=== PATIENT | female | born 1940 | race Caucasian/White ===

== ENCOUNTER 2022-01-22 10:50 | Inpatient (IN) | payer BC ==
[~2022-01-22] VITALS: Ht 162.6 cm; Wt 61.7 kg
[2022-01-22 11:03] VITALS: BP_SYST 122
[2022-01-22] MEDS ORDERED: KETOROLAC TROMETHAMINE 30 MG VIAL IVP ONE (11:30)
[2022-01-22] MEDS ORDERED: NACL 0.9% 1,000 ML IV ONE (11:30)
[2022-01-22 12:11] LABS: BILIRUBIN,URINE NEGATIVE (NEGATIVE); CLARITY/URINE SL CLOUDY (CLEAR); COLOR,URINE YELLOW (YELLOW); GLUCOSE,URINE NEGATIVE (NEGATIVE); KETONES,URINE TRACE (NEGATIVE); LEUKOCYTE ESTERASE ,URINE NEGATIVE (NEGATIVE); NITRITE, URINE POSITIVE (NEGATIVE); PROTEIN URINE 2+ (NEGATIVE); UROBILINOGEN,URINE 0.2 (0.2-1.0)
[2022-01-22 12:16] LABS: BASOPHILS # (AUTO) 0.1 K/uL (0.0-0.2); BASOPHILS % (AUTO) 0.6 % (0.0-2.0); EOSINOPHILS % (AUTO) 0.1 % (0.0-4.0); HEMATOCRIT 38.6 % (36-48); LYMPHOCYTES # (AUTO) 1.6 K/uL (1.0-5.5); LYMPHOCYTES % (AUTO) 15.6 % (20.5-51.5); MEAN CORPUSCULAR HEMOGLOBIN 34 pg (27-31); MEAN CORPUSCULAR HGB CONC 34 % (32-36); MEAN CORPUSCULAR VOLUME 100 fL (79.0-98.0); MONOCYTES # (AUTO) 0.5 K/uL (0.0-1.0); MONOCYTES % (AUTO) 4.4 % (1.7-9.3); NEUTROPHILS # (AUTO) 8.2 K/uL (1.8-7.7); NEUTROPHILS % (AUTO) 79.3 % (40.0-70.0); PLATELET COUNT (AUTO) 333 K/uL (130-430); RED BLOOD CELL COUNT(AUTO) 3.85 MIL/uL (4.2-6.2); RED CELL DISTRIBUTION WIDTH 13.5 % (9.0-15.0); WHITE BLOOD COUNT (AUTO) 10.4 K/uL (4.8-10.8)
[2022-01-22 12:19] LABS: BLOOD, URINE TRACE (NEGATIVE)
[2022-01-22 12:23] LABS: ANION GAP 11 (5-15); CALCIUM 8.1 mg/dL (8.4-11.0); CHLORIDE 105 mmol/L (98-107); CREATININE 1.19 mg/dL (0.55-1.30); GLUCOSE 132 mg/dL (70-99); POTASSIUM 4.7 mmol/L (3.5-5.1); SODIUM SERUM 133 mmol/L (136-145); UREA NITROGEN, BLOOD 31 mg/dL (8-21)
[2022-01-22] MEDS ORDERED: LIP40 PO (12:27)
[2022-01-22] MEDS ORDERED: UMEC62.5 IH (12:27)
[2022-01-22] MEDS ORDERED: NEU300 PO (12:27)
[2022-01-22] MEDS ORDERED: APIX5TAB PO (12:27)
[2022-01-22] MEDS ORDERED: FURO-150 PO (12:27)
[2022-01-22] MEDS ORDERED: AMIO100T4 PO (12:27)
[2022-01-22] MEDS ORDERED: METO25TA6 PO (12:27)
[2022-01-22 12:28] LABS: BACTERIA,URINE MANY /HPF (None Seen); WBC,URINE 0-3 /HPF (0-3)
[2022-01-22 12:28] LABS: INR 1.1 (0.8-1.2); PROTHROMBIN TIME 11.4 SECS (9.5-12.5)
[2022-01-22 12:32] LABS: ALANINE AMINOTRANSFERASE 29 U/L (12-78); ALBUMIN 3.4 g/dL (3.4-4.8); ASPARTATE AMINOTRANSFERASE 26 U/L (10-37); TOTAL BILIRUBIN 0.5 mg/dL (0.0-1.0)
[2022-01-22 19:20] VITALS: BP_SYST 139
[2022-01-22] MEDS ORDERED: ONDANSETRON HCL 4 MG/2 ML VIAL IVP PRN (19:45)
[2022-01-22 20:35] VITALS: BP_SYST 129
[2022-01-22] MEDS ORDERED: ACETAMINOPHEN 325 MG TABLET PO PRN (22:00)
[2022-01-22] MEDS ORDERED: LORazepam 2 MG/ML VIAL IVP PRN (22:00)
[2022-01-22] MEDS ORDERED: NALOXONE HCL 0.4 MG/ML AMP (NARCAN) IVP PRN ×2 (22:00)
[2022-01-22] MEDS: D5/0.45 NS 1,000 ML IV SCH (23:25)
[2022-01-22] MEDS: ONDANSETRON HCL 4 MG/2 ML VIAL IVP PRN (23:28)
[2022-01-22] MEDS: HYDROcodone/ACETAMIN 5-325 MG TAB (NORCO/ VICODIN) PO PRN (23:28)
[2022-01-23] MEDS: HYDROcodone/ACETAMIN 10-325 MG TAB PO PRN ×4 (03:57→23:33)
[2022-01-23] MEDS: ONDANSETRON HCL 4 MG/2 ML VIAL IVP PRN ×4 (04:00→17:50)
[2022-01-23 06:20] LABS: BASOPHILS # (AUTO) 0.1 K/uL (0.0-0.2); BASOPHILS % (AUTO) 0.4 % (0.0-2.0); EOSINOPHILS % (AUTO) 0.1 % (0.0-4.0); HEMATOCRIT 37.7 % (36-48); HEMOGLOBIN 12.7 g/dL (12.0-16.0); LYMPHOCYTES # (AUTO) 1.5 K/uL (1.0-5.5); LYMPHOCYTES % (AUTO) 12.7 % (20.5-51.5); MEAN CORPUSCULAR HEMOGLOBIN 34 pg (27-31); MEAN CORPUSCULAR HGB CONC 34 % (32-36); MEAN CORPUSCULAR VOLUME 100 fL (79.0-98.0); MONOCYTES # (AUTO) 0.7 K/uL (0.0-1.0); NEUTROPHILS # (AUTO) 9.5 K/uL (1.8-7.7); NEUTROPHILS % (AUTO) 80.8 % (40.0-70.0); PLATELET COUNT (AUTO) 297 K/uL (130-430); RED BLOOD CELL COUNT(AUTO) 3.76 MIL/uL (4.2-6.2); RED CELL DISTRIBUTION WIDTH 13.4 % (9.0-15.0); WHITE BLOOD COUNT (AUTO) 11.7 K/uL (4.8-10.8)
[2022-01-23] MEDS: D5/0.45 NS 1,000 ML IV SCH ×2 (06:45→13:28)
[2022-01-23 07:09] LABS: ALANINE AMINOTRANSFERASE 16 U/L (12-78); ALBUMIN 2.9 g/dL (3.4-4.8); ANION GAP 12 (5-15); ASPARTATE AMINOTRANSFERASE 16 U/L (10-37); CALCIUM 7.1 mg/dL (8.4-11.0); CHLORIDE 107 mmol/L (98-107); CREATININE 1.03 mg/dL (0.55-1.30); GLUCOSE 161 mg/dL (70-99); PHOSPHORUS 2.9 mg/dL (2.7-4.5); POTASSIUM 3.8 mmol/L (3.5-5.1); SODIUM SERUM 136 mmol/L (136-145); TOTAL BILIRUBIN 0.2 mg/dL (0.0-1.0); UREA NITROGEN, BLOOD 29 mg/dL (8-21)
[2022-01-23 08:00] VITALS: BP_SYST 133
[2022-01-23] MEDS: FUROSEMIDE 20 MG TABLET PO SCH (08:45)
[2022-01-23] MEDS: METOPROLOL TARTRATE 25 MG TABLET PO SCH ×2 (08:45→20:50)
[2022-01-23] MEDS: HYDROcodone/ACETAMIN 5-325 MG TAB (NORCO/ VICODIN) PO PRN (08:46)
[2022-01-23] MEDS: AMIODARONE HCL 200 MG TABLET PO SCH (08:46)
[2022-01-23] MEDS: APIXABAN 2.5 MG TABLET PO SCH ×2 (08:48→20:51)
[2022-01-23 08:55] LABS: C-REACTIVE PROTEIN QUANT < 0.2 mg/dL (0-0.5)
[2022-01-23 09:59] LABS: ERYTHROCYTE SEDIMENTATION RATE 9 MM/HR (0-20)
[2022-01-23] MEDS ORDERED: DIATR MEGLU/DIATRIZ SOD 30 ML SOLUTION PO ONE (11:04)
[2022-01-23 12:00] VITALS: BP_SYST 127
[2022-01-23 16:00] VITALS: BP_SYST 126
[2022-01-23] MEDS: cefTRIAXone 1 GM in D5W 50 ML IV SCH (18:21)
[2022-01-23 20:00] VITALS: BP_SYST 138
[2022-01-23] MEDS: DOCUSATE SODIUM 100 MG CAPSULE PO SCH (20:50)
[2022-01-23] MEDS: GABAPENTIN 300 MG CAPSULE PO SCH (20:50)
[2022-01-23] MEDS: ATORVASTATIN 20 MG TABLET PO SCH (20:50)
[2022-01-24 00:10] VITALS: BP_SYST 109
[2022-01-24] MEDS: D5/0.45 NS 1,000 ML IV SCH ×3 (00:15→20:58)
[2022-01-24 08:00] VITALS: BP_SYST 105
[2022-01-24] MEDS: DOCUSATE SODIUM 100 MG CAPSULE PO SCH ×2 (08:42→20:55)
[2022-01-24] MEDS: METOPROLOL TARTRATE 25 MG TABLET PO SCH ×2 (08:43→20:56)
[2022-01-24] MEDS: AMIODARONE HCL 200 MG TABLET PO SCH (08:43)
[2022-01-24] MEDS: ONDANSETRON HCL 4 MG/2 ML VIAL IVP PRN (08:44)
[2022-01-24] MEDS: FUROSEMIDE 20 MG TABLET PO SCH (08:44)
[2022-01-24] MEDS: HYDROcodone/ACETAMIN 10-325 MG TAB PO PRN ×3 (08:45→20:55)
[2022-01-24] MEDS: APIXABAN 2.5 MG TABLET PO SCH ×2 (08:47→20:58)
[2022-01-24 12:49] VITALS: BP_SYST 99
[2022-01-24 16:11] VITALS: BP_SYST 107
[2022-01-24] MEDS: cefTRIAXone 1 GM in D5W 50 ML IV SCH (17:15)
[2022-01-24 20:18] VITALS: BP_SYST 117
[2022-01-24] MEDS: GABAPENTIN 300 MG CAPSULE PO SCH (20:55)
[2022-01-24] MEDS: ATORVASTATIN 20 MG TABLET PO SCH (20:55)
[2022-01-25 02:12] VITALS: BP_SYST 90
[2022-01-25] MEDS: HYDROcodone/ACETAMIN 10-325 MG TAB PO PRN ×3 (05:34→20:48)
[2022-01-25] MEDS: D5/0.45 NS 1,000 ML IV SCH ×3 (06:15→17:23)
[2022-01-25 07:17] LABS: BASOPHILS % (AUTO) 0.1 % (0.0-2.0); EOSINOPHILS % (AUTO) 0.1 % (0.0-4.0); HEMATOCRIT 37.4 % (36-48); HEMOGLOBIN 12.5 g/dL (12.0-16.0); LYMPHOCYTES # (AUTO) 1.3 K/uL (1.0-5.5); LYMPHOCYTES % (AUTO) 10.8 % (20.5-51.5); MEAN CORPUSCULAR HEMOGLOBIN 34 pg (27-31); MEAN CORPUSCULAR HGB CONC 34 % (32-36); MEAN CORPUSCULAR VOLUME 101 fL (79.0-98.0); MONOCYTES # (AUTO) 0.8 K/uL (0.0-1.0); MONOCYTES % (AUTO) 6.8 % (1.7-9.3); NEUTROPHILS # (AUTO) 10.3 K/uL (1.8-7.7); NEUTROPHILS % (AUTO) 82.2 % (40.0-70.0); PLATELET COUNT (AUTO) 243 K/uL (130-430); RED CELL DISTRIBUTION WIDTH 13.6 % (9.0-15.0); WHITE BLOOD COUNT (AUTO) 12.5 K/uL (4.8-10.8)
[2022-01-25 08:00] VITALS: BP_SYST 118
[2022-01-25 08:26] LABS: ANION GAP 8 (5-15); CALCIUM 7.7 mg/dL (8.4-11.0); CHLORIDE 102 mmol/L (98-107); CREATININE 0.79 mg/dL (0.55-1.30); GLUCOSE 115 mg/dL (70-99); POTASSIUM 4.6 mmol/L (3.5-5.1); SODIUM SERUM 133 mmol/L (136-145); UREA NITROGEN, BLOOD 15 mg/dL (8-21)
[2022-01-25] MEDS ORDERED: fentaNYL CITRATE/PF 100 MCG/2 ML AMP ONE (08:52)
[2022-01-25] MEDS ORDERED: MIDAZOLAM HCL 5 MG/5 ML VIAL ONE (08:53)
[2022-01-25] MEDS ORDERED: PANTOPRAZOLE SODIUM 40 MG TAB PO SCH (09:00)
[2022-01-25] MEDS ORDERED: NS 500 ML IV ONE (09:45)
[2022-01-25] MEDS: FUROSEMIDE 20 MG TABLET PO SCH (10:05)
[2022-01-25] MEDS: DOCUSATE SODIUM 100 MG CAPSULE PO SCH ×2 (10:05→20:49)
[2022-01-25] MEDS: AMIODARONE HCL 200 MG TABLET PO SCH (10:06)
[2022-01-25] MEDS: APIXABAN 2.5 MG TABLET PO SCH ×2 (10:09→20:52)
[2022-01-25] MEDS: METOPROLOL TARTRATE 25 MG TABLET PO SCH ×2 (10:10→20:50)
[2022-01-25] MEDS ORDERED: PANTOPRAZOLE SODIUM 40 MG TAB PO ONE (10:15)
[2022-01-25] MEDS: ONDANSETRON HCL 4 MG/2 ML VIAL IVP PRN (11:23)
[2022-01-25 12:00] VITALS: BP_SYST 112
[2022-01-25 17:00] VITALS: BP_SYST 125
[2022-01-25] MEDS: cefTRIAXone 1 GM in D5W 50 ML IV SCH (17:22)
[2022-01-25 20:37] VITALS: BP_SYST 107
[2022-01-25] MEDS: GABAPENTIN 300 MG CAPSULE PO SCH (20:49)
[2022-01-25] MEDS: PANTOPRAZOLE SODIUM 40 MG TAB PO SCH (20:49)
[2022-01-25] MEDS: ATORVASTATIN 20 MG TABLET PO SCH (20:49)
[2022-01-25] MEDS: MELATONIN 5 MG TABLET PO PRN (20:51)
[2022-01-26] VITALS (7 sets, daily range): BP systolic 73–104
[2022-01-26] MEDS: AMIODARONE HCL 200 MG TABLET PO SCH (08:31)
[2022-01-26] MEDS: DOCUSATE SODIUM 100 MG CAPSULE PO SCH ×2 (08:31→21:00)
[2022-01-26] MEDS: APIXABAN 2.5 MG TABLET PO SCH ×2 (08:32→21:43)
[2022-01-26] MEDS: FUROSEMIDE 20 MG TABLET PO SCH (08:33)
[2022-01-26] MEDS: METOPROLOL TARTRATE 25 MG TABLET PO SCH ×2 (08:34→21:38)
[2022-01-26] MEDS: PANTOPRAZOLE SODIUM 40 MG TAB PO SCH ×2 (08:35→21:38)
[2022-01-26] MEDS ORDERED: NS 500 ML IV ONE (08:45)
[2022-01-26 09:29] LABS: BASOPHILS % (AUTO) 0.5 % (0.0-2.0); EOSINOPHILS # (AUTO) 0.1 K/uL (0.0-0.4); EOSINOPHILS % (AUTO) 0.6 % (0.0-4.0); HEMATOCRIT 36.5 % (36-48); HEMOGLOBIN 12.1 g/dL (12.0-16.0); LYMPHOCYTES # (AUTO) 2.1 K/uL (1.0-5.5); LYMPHOCYTES % (AUTO) 23.1 % (20.5-51.5); MEAN CORPUSCULAR HEMOGLOBIN 34 pg (27-31); MEAN CORPUSCULAR HGB CONC 33 % (32-36); MEAN CORPUSCULAR VOLUME 102 fL (79.0-98.0); MONOCYTES # (AUTO) 0.4 K/uL (0.0-1.0); MONOCYTES % (AUTO) 4.7 % (1.7-9.3); NEUTROPHILS # (AUTO) 6.6 K/uL (1.8-7.7); NEUTROPHILS % (AUTO) 71.1 % (40.0-70.0); PLATELET COUNT (AUTO) 235 K/uL (130-430); RED BLOOD CELL COUNT(AUTO) 3.59 MIL/uL (4.2-6.2); RED CELL DISTRIBUTION WIDTH 13.3 % (9.0-15.0); WHITE BLOOD COUNT (AUTO) 9.3 K/uL (4.8-10.8)
[2022-01-26 09:41] LABS: ANION GAP 6 (5-15); CALCIUM 7.6 mg/dL (8.4-11.0); CHLORIDE 104 mmol/L (98-107); CREATININE 0.92 mg/dL (0.55-1.30); GLUCOSE 128 mg/dL (70-99); POTASSIUM 3.5 mmol/L (3.5-5.1); SODIUM SERUM 134 mmol/L (136-145); UREA NITROGEN, BLOOD 8 mg/dL (8-21)
[2022-01-26 09:48] LABS: ALANINE AMINOTRANSFERASE 7 U/L (12-78); ALBUMIN 2.1 g/dL (3.4-4.8); ASPARTATE AMINOTRANSFERASE 11 U/L (10-37); TOTAL BILIRUBIN 0.1 mg/dL (0.0-1.0)
[2022-01-26] MEDS ORDERED: NACL 0.9% 250 ML IV SCH (11:25)
[2022-01-26] MEDS ORDERED: NS 250 ML IV ONE ×2 (11:30→11:45)
[2022-01-26] MEDS: IPRATROPIUM BROM 0.5 MG/2.5 ML VIAL.NEB (ATROVENT) INH SCH ×2 (13:34→20:01)
[2022-01-26] MEDS: HYDROcodone/ACETAMIN 5-325 MG TAB (NORCO/ VICODIN) PO PRN ×2 (13:50→21:39)
[2022-01-26] MEDS: D5/0.45 NS 1,000 ML IV SCH (14:00)
[2022-01-26] MEDS: cefTRIAXone 1 GM in D5W 50 ML IV SCH (16:47)
[2022-01-26] MEDS: ATORVASTATIN 20 MG TABLET PO SCH (21:38)
[2022-01-26] MEDS: GABAPENTIN 300 MG CAPSULE PO SCH (21:38)
[2022-01-27] VITALS (7 sets, daily range): BP systolic 98–124
[2022-01-27] MEDS: IPRATROPIUM BROM 0.5 MG/2.5 ML VIAL.NEB (ATROVENT) INH SCH ×4 (01:00→19:31)
[2022-01-27] MEDS: HYDROcodone/ACETAMIN 10-325 MG TAB PO PRN ×2 (01:09→20:51)
[2022-01-27] MEDS: D5/0.45 NS 1,000 ML IV SCH ×3 (01:09→22:00)
[2022-01-27] MEDS: PANTOPRAZOLE SODIUM 40 MG TAB PO SCH ×2 (08:19→20:50)
[2022-01-27] MEDS: FUROSEMIDE 20 MG TABLET PO SCH (08:19)
[2022-01-27] MEDS: AMIODARONE HCL 200 MG TABLET PO SCH (08:19)
[2022-01-27] MEDS: METOPROLOL TARTRATE 25 MG TABLET PO SCH ×2 (08:20→20:51)
[2022-01-27] MEDS: APIXABAN 2.5 MG TABLET PO SCH ×2 (08:22→20:53)
[2022-01-27 08:38] LABS: BASOPHILS % (AUTO) 0.7 % (0.0-2.0); EOSINOPHILS # (AUTO) 0.1 K/uL (0.0-0.4); HEMATOCRIT 28.2 % (36-48); HEMOGLOBIN 9.6 g/dL (12.0-16.0); LYMPHOCYTES # (AUTO) 1.9 K/uL (1.0-5.5); LYMPHOCYTES % (AUTO) 32.4 % (20.5-51.5); MEAN CORPUSCULAR HEMOGLOBIN 34 pg (27-31); MEAN CORPUSCULAR HGB CONC 34 % (32-36); MEAN CORPUSCULAR VOLUME 101 fL (79.0-98.0); MONOCYTES # (AUTO) 0.4 K/uL (0.0-1.0); MONOCYTES % (AUTO) 7.6 % (1.7-9.3); NEUTROPHILS # (AUTO) 3.3 K/uL (1.8-7.7); NEUTROPHILS % (AUTO) 57.3 % (40.0-70.0); PLATELET COUNT (AUTO) 252 K/uL (130-430); RED CELL DISTRIBUTION WIDTH 13.4 % (9.0-15.0); WHITE BLOOD COUNT (AUTO) 5.8 K/uL (4.8-10.8)
[2022-01-27 08:44] LABS: ANION GAP 6 (5-15); CALCIUM 7.5 mg/dL (8.4-11.0); CHLORIDE 109 mmol/L (98-107); CREATININE 0.71 mg/dL (0.55-1.30); GLUCOSE 103 mg/dL (70-99); POTASSIUM 3.4 mmol/L (3.5-5.1); SODIUM SERUM 141 mmol/L (136-145); UREA NITROGEN, BLOOD 7 mg/dL (8-21)
[2022-01-27] MEDS: DOCUSATE SODIUM 100 MG CAPSULE PO SCH ×2 (09:00→20:53)
[2022-01-27] MEDS: HYDROcodone/ACETAMIN 5-325 MG TAB (NORCO/ VICODIN) PO PRN (15:52)
[2022-01-27] MEDS: cefTRIAXone 1 GM in D5W 50 ML IV SCH (16:48)
[2022-01-27 17:59] LABS: HEMOGLOBIN 9.9 g/dL (12.0-16.0); MEAN CORPUSCULAR HEMOGLOBIN 35 pg (27-31)
[2022-01-27 18:16] LABS: BASOPHILS % (AUTO) 0.9 % (0.0-2.0); EOSINOPHILS # (AUTO) 0.1 K/uL (0.0-0.4); EOSINOPHILS % (AUTO) 1.4 % (0.0-4.0); LYMPHOCYTES # (AUTO) 1.3 K/uL (1.0-5.5); LYMPHOCYTES % (AUTO) 23.1 % (20.5-51.5); MEAN CORPUSCULAR HGB CONC 34 % (32-36); MEAN CORPUSCULAR VOLUME 102 fL (79.0-98.0); MONOCYTES # (AUTO) 0.4 K/uL (0.0-1.0); MONOCYTES % (AUTO) 6.9 % (1.7-9.3); NEUTROPHILS # (AUTO) 3.9 K/uL (1.8-7.7); NEUTROPHILS % (AUTO) 67.7 % (40.0-70.0); PLATELET COUNT (AUTO) 278 K/uL (130-430); RED BLOOD CELL COUNT(AUTO) 2.85 MIL/uL (4.2-6.2); RED CELL DISTRIBUTION WIDTH 13.1 % (9.0-15.0); WHITE BLOOD COUNT (AUTO) 5.7 K/uL (4.8-10.8)
[2022-01-27] MEDS: GABAPENTIN 300 MG CAPSULE PO SCH (20:50)
[2022-01-27] MEDS: ATORVASTATIN 20 MG TABLET PO SCH (20:50)
[2022-01-28] VITALS (8 sets, daily range): BP systolic 108–139
[2022-01-28] MEDS: MELATONIN 5 MG TABLET PO PRN (00:13)
[2022-01-28] MEDS ORDERED: MELATONIN 5 MG TABLET PO ONE (00:13)
[2022-01-28] MEDS: IPRATROPIUM BROM 0.5 MG/2.5 ML VIAL.NEB (ATROVENT) INH SCH ×3 (01:00→13:00)
[2022-01-28 05:40] LABS: BASOPHILS % (AUTO) 0.9 % (0.0-2.0); EOSINOPHILS # (AUTO) 0.1 K/uL (0.0-0.4); EOSINOPHILS % (AUTO) 2.4 % (0.0-4.0); HEMATOCRIT 27.2 % (36-48); HEMOGLOBIN 9.3 g/dL (12.0-16.0); LYMPHOCYTES # (AUTO) 1.7 K/uL (1.0-5.5); LYMPHOCYTES % (AUTO) 33.5 % (20.5-51.5); MEAN CORPUSCULAR HEMOGLOBIN 34 pg (27-31); MEAN CORPUSCULAR HGB CONC 34 % (32-36); MEAN CORPUSCULAR VOLUME 100 fL (79.0-98.0); MONOCYTES # (AUTO) 0.4 K/uL (0.0-1.0); MONOCYTES % (AUTO) 7.8 % (1.7-9.3); NEUTROPHILS # (AUTO) 2.8 K/uL (1.8-7.7); NEUTROPHILS % (AUTO) 55.4 % (40.0-70.0); PLATELET COUNT (AUTO) 269 K/uL (130-430); RED BLOOD CELL COUNT(AUTO) 2.71 MIL/uL (4.2-6.2); RED CELL DISTRIBUTION WIDTH 13.4 % (9.0-15.0)
[2022-01-28] MEDS: DOCUSATE SODIUM 100 MG CAPSULE PO SCH (07:43)
[2022-01-28] MEDS: PANTOPRAZOLE SODIUM 40 MG TAB PO SCH (07:46)
[2022-01-28] MEDS: METOPROLOL TARTRATE 25 MG TABLET PO SCH (07:50)
[2022-01-28] MEDS: AMIODARONE HCL 200 MG TABLET PO SCH (07:50)
[2022-01-28] MEDS: APIXABAN 2.5 MG TABLET PO SCH (07:52)
[2022-01-28] MEDS: D5/0.45 NS 1,000 ML IV SCH (07:53)
[2022-01-28 08:14] LABS: ALBUMIN 1.9 g/dL (3.4-4.8); ANION GAP 6 (5-15); CALCIUM 7.5 mg/dL (8.4-11.0); CHLORIDE 108 mmol/L (98-107); CREATININE 0.73 mg/dL (0.55-1.30); GLUCOSE 105 mg/dL (70-99); POTASSIUM 3.3 mmol/L (3.5-5.1); SODIUM SERUM 140 mmol/L (136-145); UREA NITROGEN, BLOOD 7 mg/dL (8-21)
[2022-01-28 10:00] LABS: ALANINE AMINOTRANSFERASE 17 U/L (12-78); ASPARTATE AMINOTRANSFERASE 18 U/L (10-37); TOTAL BILIRUBIN < 0.1 mg/dL (0.0-1.0)
[2022-01-28] MEDS ORDERED: PRO40 PO (10:03)
== END 2022-01-28 15:00 | disposition home or self-care (01) | DRG 378 ==
LOC: SED 10:50 → SMU 18:12 → STU 01-25 09:46
PROVIDERS: ADMIT Internal Medicine Hospice and Palliative Medicine; ATTEND Internal Medicine Hospice and Palliative Medicine
PROC: 0DB98ZX Excision of Duodenum, Via Natural or Artificial Opening Endoscopic, Diagnostic (ICD-10-PCS; 2022-01-25)
PROC: 0DB78ZX Excision of Stomach, Pylorus, Via Natural or Artificial Opening Endoscopic, Diagnostic (ICD-10-PCS; principal; 2022-01-25 08:30)
DX: K26.4 Chronic or unspecified duodenal ulcer with hemorrhage (principal); N39.0 Urinary tract infection, site not specified; C34.90 Malignant neoplasm of unspecified part of unspecified bronchus or lung; E86.0 Dehydration; K52.9 Noninfective gastroenteritis and colitis, unspecified; E78.5 Hyperlipidemia, unspecified; I48.0 Paroxysmal atrial fibrillation; J44.9 Chronic obstructive pulmonary disease, unspecified; K20.90 Esophagitis, unspecified without bleeding; K25.9 Gastric ulcer, unspecified as acute or chronic, without hemorrhage or perforation; E83.42 Hypomagnesemia; N18.2 Chronic kidney disease, stage 2 (mild); K29.70 Gastritis, unspecified, without bleeding; Z20.822 Contact with and (suspected) exposure to COVID-19; K74.60 Unspecified cirrhosis of liver; Z79.01 Long term (current) use of anticoagulants; Z85.118 Personal history of other malignant neoplasm of bronchus and lung; Z87.891 Personal history of nicotine dependence; Z90.2 Acquired absence of lung [part of]; Z90.710 Acquired absence of both cervix and uterus; Z88.0 Allergy status to penicillin; Z79.899 Other long term (current) drug therapy
CPT/HCPCS: 36415; 43239; 71045; 76376; 80048; 80053; 81000; 83605; 83690; 83735; 84100; 84484; 85025; 85610-TC; 85651-TC; 85730-TC; 86140; 87040; 87081; 87086; 88305; 88312; 88313; 93005; 93306; 94640; 94760; 96361; 96374; 99285; G0378; J0696; J1885; J2250; J2405; J3010; J7060; Q9964

== ENCOUNTER 2022-05-31 12:08 | Observation (INO) | payer BC ==
[~2022-05-31] VITALS: Ht 162.6 cm; Wt 63.5 kg
[~2022-05-31 12:08] MED LIST: AMIO100T4 PO; APIX5TAB PO; FURO-150 PO; LIP40 PO; METO25TA6 PO; NEU300 PO; PRO40 PO; UMEC62.5 IH
[2022-05-31 12:30] VITALS: BP_SYST 134
--- NOTE | 2022-05-31 12:30 | NUR ---
Patient triaged and placed in waiting room. VSS and patient appears in no acute distress at this time. Accompanied by SON, awaiting available bed, and MD notified of need for MSE.
--- NOTE | 2022-05-31 12:35 | NUR ---
PT CAME IN FROM HOME, BIB SON, PER MD INSTRUCTION, 5 DAYS OF MORE DIARRHEA THAN NORMAL, DARK/BLACK STOOLS ON FRIDAY AND FRIDAY, UPPER ABD AND BACK PAIN. PT ALSO REPORTS FEELING WEAKER THAN NORMAL.HX ULCERS. PT USES WALKER TO AMBULATE, AAOX4, VSS
--- NOTE | 2022-05-31 12:56 | NUR ---
ER Dr. BARKSDALE at bedside examining patient.
--- NOTE | 2022-05-31 13:39 | NUR ---
Placed in room 8 . Placed on hospital monitor, blood pressure machine and pulse oximeter. To gown for exam. Side rails up.
--- NOTE | 2022-05-31 14:05 | NUR ---
Patient transported to radiology via GURNEY, accompanied by STAFF.
[2022-05-31 15:09] LABS: BASOPHILS % (AUTO) 0.4 % (0.0-2.0); EOSINOPHILS # (AUTO) 0.1 K/uL (0.0-0.4); EOSINOPHILS % (AUTO) 0.9 % (0.0-4.0); HEMATOCRIT 38.9 % (36-48); HEMOGLOBIN 13.3 g/dL (12.0-16.0); LYMPHOCYTES # (AUTO) 2.3 K/uL (1.0-5.5); LYMPHOCYTES % (AUTO) 39.6 % (20.5-51.5); MEAN CORPUSCULAR HEMOGLOBIN 35 pg (27-31); MEAN CORPUSCULAR HGB CONC 34 % (32-36); MEAN CORPUSCULAR VOLUME 103 fL (79.0-98.0); MONOCYTES # (AUTO) 0.4 K/uL (0.0-1.0); MONOCYTES % (AUTO) 6.5 % (1.7-9.3); NEUTROPHILS % (AUTO) 52.6 % (40.0-70.0); PLATELET COUNT (AUTO) 204 K/uL (130-430); RED BLOOD CELL COUNT(AUTO) 3.77 MIL/uL (4.2-6.2); RED CELL DISTRIBUTION WIDTH 13.9 % (9.0-15.0); WHITE BLOOD COUNT (AUTO) 5.8 K/uL (4.8-10.8)
[2022-05-31 15:14] LABS: ANION GAP 6 (5-15); CALCIUM 8.9 mg/dL (8.4-11.0); CHLORIDE 104 mmol/L (98-107); GLUCOSE 89 mg/dL (70-99); POTASSIUM 4.1 mmol/L (3.5-5.1); UREA NITROGEN, BLOOD 19 mg/dL (8-21)
[2022-05-31 15:16] LABS: PROTHROMBIN TIME 10.4 SECS (9.5-12.5)
[2022-05-31 15:18] LABS: ALANINE AMINOTRANSFERASE 23 U/L (12-78); ALBUMIN 3.9 g/dL (3.4-4.8); AMYLASE 26 U/L (0-100); ASPARTATE AMINOTRANSFERASE 23 U/L (10-37); LIPASE 64 U/L (73-393); TOTAL BILIRUBIN 0.7 mg/dL (0.0-1.0)
--- NOTE | 2022-05-31 21:19 | NUR ---
Admit bed requested Patient will be admitted to care of . Admitted to MS unit. Diagnosis GI BLEED Inpatient (Yes or No) NO Observation (Yes or No) YES Orientation concerns or request close to nursing station (Yes or No) NO Covid Status PENDING On vent or bipap NO Isolation requirements NO Needs a sitter NO From Home (Yes or if No enter name of facility) YES Requires Dialysis (Yes or No) NO Med Rec Completed (Yes of No) PENDING
--- NOTE | 2022-06-01 00:50 | NUR ---
Patient will be admitted to care of MD Fatima. Admitted to MS unit. Will go to room 103A. Complete and up to date summary report printed. SBAR report given at bedside to HECTOR Selby with opportunity for questions.
[2022-06-01 01:10] VITALS: BP_SYST 129
--- NOTE | 2022-06-01 02:13 | NUR ---
THIS IS MEDICAL-SURGICAL OBSERVATION NOTE FOR AN 82 YEAR OLD FEMALE RULE OUT GI BLEED. PATIENT NOTES MILD ABDOMEN PAIN ON ARRIVAL TO [facility].
--- NOTE | 2022-06-01 05:53 | NUR ---
CONSULTATION PAGED/CALLED Reason for Consultation: GI BLEED Person Who was Notified: FRAN Consulting Physician: YORDAN Veterinary Medicine Teacher Specialty: Ordering Physician: TASHI
[2022-06-01 05:58] LABS: BASOPHILS # (AUTO) 0.1 K/uL (0.0-0.2); EOSINOPHILS # (AUTO) 0.1 K/uL (0.0-0.4); HEMATOCRIT 38.2 % (36-48); HEMOGLOBIN 13.1 g/dL (12.0-16.0); LYMPHOCYTES # (AUTO) 2.2 K/uL (1.0-5.5); LYMPHOCYTES % (AUTO) 34.4 % (20.5-51.5); MEAN CORPUSCULAR HEMOGLOBIN 35 pg (27-31); MEAN CORPUSCULAR HGB CONC 34 % (32-36); MEAN CORPUSCULAR VOLUME 103 fL (79.0-98.0); MONOCYTES # (AUTO) 0.5 K/uL (0.0-1.0); MONOCYTES % (AUTO) 7.4 % (1.7-9.3); NEUTROPHILS # (AUTO) 3.5 K/uL (1.8-7.7); NEUTROPHILS % (AUTO) 56.2 % (40.0-70.0); PLATELET COUNT (AUTO) 194 K/uL (130-430); RED BLOOD CELL COUNT(AUTO) 3.71 MIL/uL (4.2-6.2); RED CELL DISTRIBUTION WIDTH 13.8 % (9.0-15.0); WHITE BLOOD COUNT (AUTO) 6.2 K/uL (4.8-10.8)
[2022-06-01 06:09] LABS: ANION GAP 7 (5-15); CALCIUM 8.9 mg/dL (8.4-11.0); CHLORIDE 103 mmol/L (98-107); CREATININE 1.08 mg/dL (0.55-1.30); GLUCOSE 67 mg/dL (70-99); POTASSIUM 3.6 mmol/L (3.5-5.1); UREA NITROGEN, BLOOD 21 mg/dL (8-21)
[2022-06-01 06:16] LABS: ALANINE AMINOTRANSFERASE 16 U/L (12-78); ALBUMIN 3.3 g/dL (3.4-4.8); ASPARTATE AMINOTRANSFERASE 22 U/L (10-37); TOTAL BILIRUBIN 0.8 mg/dL (0.0-1.0)
[2022-06-01] MEDS ORDERED: NALOXONE HCL 0.4 MG/ML AMP (NARCAN) IVP PRN (08:15)
[2022-06-01] MEDS ORDERED: ACETAMINOPHEN 325 MG TABLET PO PRN (08:15)
[2022-06-01] MEDS ORDERED: PANTOPRAZOLE SODIUM 40 MG/VIAL (PROTONIX) IVP ONE (08:15)
[2022-06-01] MEDS ORDERED: HYDROcodone/ACETAMIN 5-325 MG TAB (NORCO/ VICODIN) PO PRN (08:15)
[2022-06-01] MEDS ORDERED: AMIODARONE HCL 200 MG TABLET PO ONE (08:15)
[2022-06-01] MEDS ORDERED: ATORVASTATIN 20 MG TABLET PO ONE (09:00)
[2022-06-01] MEDS: D5/0.45 NS 1,000 ML IV SCH ×2 (09:21→21:21)
[2022-06-01 11:24] VITALS: BP_SYST 136
[2022-06-01 15:24] VITALS: BP_SYST 134
[2022-06-01] MEDS ORDERED: BUDESONIDE/FORMOTEROL 160-4.5 mCg, 6 GM INHALER INH PRN (16:30)
[2022-06-01 16:48] VITALS: BP_SYST 134
[2022-06-01] MEDS: ALBUTEROL SULFATE 0.083% 2.5 MG/3 ML VIAL.NEB INH SCH (19:45)
[2022-06-01] MEDS: BUDESONIDE 0.5 MG/2 ML AMPUL.NEB INH SCH (19:52)
[2022-06-01 20:49] LABS: BASOPHILS # (AUTO) 0.1 K/uL (0.0-0.2); EOSINOPHILS % (AUTO) 0.3 % (0.0-4.0); HEMATOCRIT 42.7 % (36-48); HEMOGLOBIN 14.2 g/dL (12.0-16.0); LYMPHOCYTES % (AUTO) 34.5 % (20.5-51.5); MEAN CORPUSCULAR HEMOGLOBIN 35 pg (27-31); MEAN CORPUSCULAR HGB CONC 33 % (32-36); MEAN CORPUSCULAR VOLUME 105 fL (79.0-98.0); MONOCYTES # (AUTO) 0.4 K/uL (0.0-1.0); MONOCYTES % (AUTO) 6.1 % (1.7-9.3); NEUTROPHILS # (AUTO) 3.4 K/uL (1.8-7.7); NEUTROPHILS % (AUTO) 58.1 % (40.0-70.0); PLATELET COUNT (AUTO) 178 K/uL (130-430); RED BLOOD CELL COUNT(AUTO) 4.06 MIL/uL (4.2-6.2); RED CELL DISTRIBUTION WIDTH 13.9 % (9.0-15.0); WHITE BLOOD COUNT (AUTO) 5.9 K/uL (4.8-10.8)
[2022-06-01] MEDS ORDERED: PANTOPRAZOLE SODIUM 40 MG/VIAL (PROTONIX) IVP SCH (21:00)
--- NOTE | 2022-06-01 23:15 | NUR ---
PT COMPLAINT : BANKING MANAGEMENT CONSULTING MANAGER CAME AND TOLD ME THAT PT WANTS TO TALK TO ME , I WENT TO THE ROOM , PT TOLD ME THAT SHE DIDNT RECEIVED HER MEDICATION TONIGHT , WHEN I CHECKED THE EMAR NOTICED THAT MEDICATION ARE SCANNED AND GIVEN , I WENT TO THE RN AND TALKED WITH RN , PER RN PT REFUSED TO START NEW IV SO SHE DIDNT RECEIVED HER PROTONIX OR IV FLUID , WENT AND TALKED WITH THE PT , PT STATED SHE DOESNT WANT THE MEDICATION IN IV FORM , SHE STATED" SHE HAS SMALL VEINS AND ITS TOO PAINFUL AND I DONT WANT TO BE POKED AGAIN " I EDUCATED THE PT THAT PTS MEDICATION ORDER IS PROTONIX AND ITS THROUGH IV , PT REQUESTED ME TO CHANGE HER PROTONIX TO PO FORM . PRIMARY RN AT BEDSIDE , I REQUESTED RN TO CALL MD TO SEE CINDY PAYNE IS OK TO CHANGE THE ORDER . RN WANTS ME TO CALL , SO I CALLED DR CORONA , WHO IS COVERING FOR DR AKINS TO NIGHT , AND NOTIFIED THE SITUATION , ORDERED TO CHANGE PROTONIX 40 MG IV BID TO PROTONIX 40 MG PO BID, ORDER ENTERED AND NOTIFIED PRIMARY RN AND THE PT .
--- NOTE | 2022-06-01 23:29 | NUR ---
PATIENT WAS DUE TO HAVE PROTONIX IVP AT 2100, PATIENT HAD NO IV ACCESS,AND REFUSED RE - STARTING A PIV .PATIENT STATED THAT SHE IS GOING HOME TOMORROW . PATIENT ASKED NURSE TO GIVE THE PROTONIX IM. RN EXPLAINED THAT ORDERED ROUTE OF ADMINISTRATION IS THROUGH IVP AND IT COULD CAUSE INFECTION / ABCESS IF GIVEN IM
[2022-06-01] MEDS: PANTOPRAZOLE SODIUM 40 MG TAB PO SCH ×2 (23:30→23:57)
[2022-06-02] VITALS: BP_SYST 142
[2022-06-02 00:46] VITALS: BP_SYST 142
[2022-06-02] MEDS: ALBUTEROL SULFATE 0.083% 2.5 MG/3 ML VIAL.NEB INH SCH ×3 (01:00→13:35)
[2022-06-02] MEDS: BUDESONIDE 0.5 MG/2 ML AMPUL.NEB INH SCH (07:20)
[2022-06-02 07:48] LABS: ANION GAP 8 (5-15); CALCIUM 8.4 mg/dL (8.4-11.0); CHLORIDE 102 mmol/L (98-107); CREATININE 0.92 mg/dL (0.55-1.30); GLUCOSE 87 mg/dL (70-99); POTASSIUM 3.3 mmol/L (3.5-5.1); UREA NITROGEN, BLOOD 19 mg/dL (8-21)
[2022-06-02 08:00] VITALS: BP_SYST 115
--- NOTE | 2022-06-02 08:00 | NUR ---
Miss Samuels has been assessed as indicated. She has been noted to be both pleasant and cooperative. She hopes to be DC to home. today She has no IV access and has declined it's replacement. She had had small loose stools no blood noted, not dark or tarry nor are they coffee ground in appearance. She ambulates to the rest room without assistance using a walker that is at the bedside. She is resting quietly with no s/s of distress or discomfort
[2022-06-02] MEDS: D5/0.45 NS 1,000 ML IV SCH (08:01)
[2022-06-02] MEDS ORDERED: ATORVASTATIN 20 MG TABLET PO SCH (09:00)
[2022-06-02] MEDS ORDERED: PRO40 PO (09:41)
[2022-06-02] MEDS ORDERED: POTASSIUM CHLORIDE 20 MEQ/PKT PACKET PO ONE (10:00)
--- NOTE | 2022-06-02 10:00 | NUR ---
Miss Samuels was seen by the covering physician Dr. Rhodes. He states that if she tolerates a regular diet at lunch she can be DC. She is made aware of this and the diet order is changed
[2022-06-02] MEDS: PANTOPRAZOLE SODIUM 40 MG TAB PO SCH (10:33)
[2022-06-02 11:26] VITALS: BP_SYST 100
--- NOTE | 2022-06-02 13:00 | NUR ---
Miss Samuels tolerated the regular diet well. No N/V or loose stools. She denies any pain or discomfort
[2022-06-02 15:28] VITALS: BP_SYST 100
[2022-06-02 15:33] VITALS: BP_SYST 117
--- NOTE | 2022-06-02 15:43 | NUR ---
[facility]/HCP CM MS SAVITA HERNANDEZ WAS CALLED, RE: TO [facility] FOR MED SAFETY AND HOME PT. LEFT A VOICE MESSAGE ON HER CP.
--- NOTE | 2022-06-06 17:01 | NUR ---
IV ADMINISTRATION END TIME (Observation Patients ONLY): late entry IV infusion of D5NS at 80 ml/hr started at 09:21 on 06/01/22 and ended at 21:20 06/01/22 IV infusion of D5NS at 80 ml/hr started at 21:21 on 06/01/22 and ended at 13:00 06/02/22
== END 2022-06-02 16:00 | disposition home health service (06) ==
LOC: SED 12:08 → SMU 21:10
PROVIDERS: ADMIT Internal Medicine; ATTEND Internal Medicine
DX: K25.9 Gastric ulcer, unspecified as acute or chronic, without hemorrhage or perforation (principal); Z20.822 Contact with and (suspected) exposure to COVID-19; K92.1 Melena; I48.91 Unspecified atrial fibrillation; J44.9 Chronic obstructive pulmonary disease, unspecified; E78.5 Hyperlipidemia, unspecified; I10 Essential (primary) hypertension; K29.70 Gastritis, unspecified, without bleeding; Z79.01 Long term (current) use of anticoagulants; Z87.11 Personal history of peptic ulcer disease; Z88.0 Allergy status to penicillin; Z79.899 Other long term (current) drug therapy
CPT/HCPCS: 80053 ×2; 82150; 83690; 85025 ×2; 85610; 85730; 86886; 86900; 86901; 36415 ×3; 93005; 76376; 74176; 99285; 83605; 87426; 96361 ×2; 96374; 94640 ×2; 80048; 94760; G0378 ×3; C9113; J7613 ×2; J7626 ×2

== ENCOUNTER 2022-07-28 12:56 | Emergency (ER) | payer BC ==
[~2022-07-28] VITALS: Ht 162.6 cm; Wt 69.9 kg
[2022-07-28 12:56] VITALS: BP_SYST 120
--- NOTE | 2022-07-28 12:56 | NUR ---
BROUGHT BACK TO BED #8 AND TRIAGED. REPORT GIVEN TO BEST
--- NOTE | 2022-07-28 14:21 | NUR ---
patient with history of a-fib presents to er with chest pain today, no sob.
--- NOTE | 2022-07-28 14:51 | NUR ---
MOVED TO BED 4
[2022-07-28] MEDS ORDERED: ASPIRIN 325 MG TABLET PO ONE (15:45)
[2022-07-28] MEDS ORDERED: MORPHINE 4 MG INJ. 4 MG/ML VIAL IVP ONE ×2 (16:00→23:30)
[2022-07-28] MEDS ORDERED: NITROGLYCERIN 1 INCH (GM) OINT. TP ONE ×2 (16:00→23:30)
[2022-07-28 16:56] LABS: BASOPHILS # (AUTO) 0.1 K/uL (0.0-0.2); BASOPHILS % (AUTO) 0.8 % (0.0-2.0); EOSINOPHILS % (AUTO) 0.8 % (0.0-4.0); HEMATOCRIT 37.9 % (36-48); LYMPHOCYTES # (AUTO) 2.7 K/uL (1.0-5.5); LYMPHOCYTES % (AUTO) 41.6 % (20.5-51.5); MEAN CORPUSCULAR HEMOGLOBIN 36 pg (27-31); MEAN CORPUSCULAR HGB CONC 34 % (32-36); MEAN CORPUSCULAR VOLUME 105 fL (79.0-98.0); MONOCYTES # (AUTO) 0.4 K/uL (0.0-1.0); MONOCYTES % (AUTO) 6.3 % (1.7-9.3); NEUTROPHILS # (AUTO) 3.2 K/uL (1.8-7.7); NEUTROPHILS % (AUTO) 50.5 % (40.0-70.0); PLATELET COUNT (AUTO) 204 K/uL (130-430); RED BLOOD CELL COUNT(AUTO) 3.62 MIL/uL (4.2-6.2); RED CELL DISTRIBUTION WIDTH 13.2 % (9.0-15.0); WHITE BLOOD COUNT (AUTO) 6.4 K/uL (4.8-10.8)
[2022-07-28 17:26] LABS: ANION GAP 7 (5-15); CALCIUM 8.8 mg/dL (8.4-11.0); CHLORIDE 106 mmol/L (98-107); CREATININE 0.99 mg/dL (0.55-1.30); GLUCOSE 94 mg/dL (70-99); UREA NITROGEN, BLOOD 19 mg/dL (8-21)
[2022-07-28 17:34] LABS: ALANINE AMINOTRANSFERASE 15 U/L (12-78); ALBUMIN 3.4 g/dL (3.4-4.8); ASPARTATE AMINOTRANSFERASE 17 U/L (10-37); TOTAL BILIRUBIN 0.3 mg/dL (0.0-1.0)
[2022-07-28 18:20] VITALS: BP_SYST 130
--- NOTE | 2022-07-28 18:24 | NUR ---
patient condition stable d/c home with instructions after care reviewed understood left er with daughter ambulatory with steady gait no chest pain.
--- NOTE | 2022-07-28 18:25 | NUR ---
Patient given written and verbal discharge instructions and verbalizes understanding. ER MD discussed with patient the results and treatment provided. Patient in stable condition. ID arm band removed. IV catheter removed intact and dressing applied, no active bleeding. Patient educated on pain management and to follow up with PMD. Pain Scale . Opportunity for questions provided and answered. Medication side effect fact sheet provided.
== END 2022-07-28 18:20 | disposition home or self-care (01) ==
LOC: SED 12:56
DX: R07.89 Other chest pain (principal); R06.02 Shortness of breath; Z88.0 Allergy status to penicillin; Z79.899 Other long term (current) drug therapy
CPT/HCPCS: 99285; 96374; 71250; 80053; 83880; 85025; 84484; 36415; 93005; 76376; J2270

== ENCOUNTER 2023-01-04 15:57 | Emergency (ER) | payer BC ==
[~2023-01-04] VITALS: Ht 162.6 cm; Wt 72.6 kg
--- NOTE | 2023-01-04 16:39 | NUR ---
PT TAKEN FOR LAB DRAW.
--- NOTE | 2023-01-04 16:39 | NUR ---
Patient triaged and placed in waiting room. VSS and patient appears in no acute distress at this time. Accompanied by DAUGHTER, awaiting available bed, and MD notified of need for MSE.
--- NOTE | 2023-01-04 16:40 | NUR ---
EKG OBTAINED AND GIVEN TO DR. BARKSDALE WHO STATED PT IS FINE TO WAIT IN WAITING ROOM
[2023-01-04 16:41] VITALS: BP_SYST 123
--- NOTE | 2023-01-04 16:58 | NUR ---
CXR, LABS AND EKG OBTAINED.
[2023-01-04 17:01] LABS: BASOPHILS % (AUTO) 0.5 % (0.0-2.0); EOSINOPHILS % (AUTO) 0.4 % (0.0-4.0); HEMATOCRIT 40.8 % (36-48); HEMOGLOBIN 13.4 g/dL (12.0-16.0); LYMPHOCYTES # (AUTO) 2.1 K/uL (1.0-5.5); LYMPHOCYTES % (AUTO) 27.9 % (20.5-51.5); MEAN CORPUSCULAR HEMOGLOBIN 34 pg (27-31); MEAN CORPUSCULAR HGB CONC 33 % (32-36); MEAN CORPUSCULAR VOLUME 105 fL (79.0-98.0); MONOCYTES # (AUTO) 0.6 K/uL (0.0-1.0); NEUTROPHILS # (AUTO) 4.8 K/uL (1.8-7.7); NEUTROPHILS % (AUTO) 63.2 % (40.0-70.0); PLATELET COUNT (AUTO) 254 K/uL (130-430); RED CELL DISTRIBUTION WIDTH 13.6 % (9.0-15.0); WHITE BLOOD COUNT (AUTO) 7.6 K/uL (4.8-10.8)
[2023-01-04 17:08] LABS: ANION GAP 7 (5-15); CALCIUM 8.5 mg/dL (8.4-11.0); CHLORIDE 107 mmol/L (98-107); CREATININE 0.96 mg/dL (0.55-1.30); GLUCOSE 118 mg/dL (70-99); UREA NITROGEN, BLOOD 16 mg/dL (8-21)
[2023-01-04 17:15] LABS: ALANINE AMINOTRANSFERASE 14 U/L (12-78); ALBUMIN 3.3 g/dL (3.4-4.8); ASPARTATE AMINOTRANSFERASE 14 U/L (10-37); TOTAL BILIRUBIN 0.4 mg/dL (0.0-1.0)
--- NOTE | 2023-01-04 17:29 | NUR ---
PT BROUGHT TO ROOM 4 AND REPORT GIVEN TO HECTOR STUBBS.
--- NOTE | 2023-01-04 17:29 | NUR ---
Patient arrived to ED 4 for c/o chest pain started mid-afternoon. She is under care under heart doctor. She said she was dizzy and shaky. Patient said she took her normal medication and the list of medications she is taking. Patient denies PMH. Patient has investor relations director Sarina. Petra ly. Will continue to monitor.
--- NOTE | 2023-01-04 18:43 | NUR ---
Dr. Gardner is waiting for second troponin result before making decision to admit or discharge. Patient updated on status.
--- NOTE | 2023-01-04 19:33 | NUR ---
Patient given written and verbal discharge instructions and verbalizes understanding. ER MD discussed with patient the results and treatment provided. Patient in stable condition. ID arm band removed. Patient educated on pain management and to follow up with PMD. Follow with tents assembler Opportunity for questions provided and answered. Medication side effect fact sheet provided.
[2023-01-04 19:34] VITALS: BP_SYST 134
== END 2023-01-04 19:34 | disposition home or self-care (01) ==
LOC: SED 15:57
DX: R07.9 Chest pain, unspecified (principal); R00.2 Palpitations; R42 Dizziness and giddiness; E78.5 Hyperlipidemia, unspecified; F17.210 Nicotine dependence, cigarettes, uncomplicated; Z88.0 Allergy status to penicillin; Z79.899 Other long term (current) drug therapy
CPT/HCPCS: 36415; 71045; 80053; 83880; 84484; 85025; 93005; 99285

== ENCOUNTER 2023-02-24 11:54 | Emergency (ER) | payer BC ==
[~2023-02-24] VITALS: Ht 162.6 cm; Wt 72.6 kg
[2023-02-24 12:00] VITALS: BP_SYST 102; PULSE 79; RESP 18; TEMP 98.3; O2SAT 94
--- NOTE | 2023-02-24 12:07 | NUR ---
Patient to ER bed 04 to gown for evaluation. Side rails up.
--- NOTE | 2023-02-24 12:20 | NUR ---
Urine specimen collected and analyzed in ER. Results given to ER .
[2023-02-24] MEDS ORDERED: KETOROLAC TROMETHAMINE 30 MG VIAL IVP ONE (13:00)
[2023-02-24] MEDS ORDERED: NACL 0.9% 1,000 ML IV ONE (13:00)
--- NOTE | 2023-02-24 13:00 | NUR ---
ER at bedside examining patient.
[2023-02-24 13:22] LABS: BILIRUBIN,URINE 1+ (NEGATIVE); BLOOD, URINE NEGATIVE (NEGATIVE); CLARITY/URINE CLEAR (CLEAR); COLOR,URINE YELLOW (YELLOW); GLUCOSE,URINE NEGATIVE (NEGATIVE); KETONES,URINE TRACE (NEGATIVE); LEUKOCYTE ESTERASE ,URINE NEGATIVE (NEGATIVE); NITRITE, URINE NEGATIVE (NEGATIVE); PROTEIN URINE 2+ (NEGATIVE); UROBILINOGEN,URINE 0.2 (0.2-1.0)
--- NOTE | 2023-02-24 13:30 | NUR ---
Miguelina friedman in ED - 02/24/23 at 1401 by SDNURPR Urine specimen collected and analyzed in ER. Results given to ER MD.
--- NOTE | 2023-02-24 13:30 | NUR ---
Urine specimen collected and analyzed in ER. Results given to ER .
--- NOTE | 2023-02-24 13:30 | NUR ---
This is an 82-year-old Female, who presents to the ER with abdominal pain and diarrhea since last night. The patient says her pain is mostly in the right lower quadrant and rated 8/10. Reports history of appendectomy and lobectomy for lung cancer in 2016
[2023-02-24 13:35] LABS: BASOPHILS # (AUTO) 0.1 K/uL (0.0-0.2); BASOPHILS % (AUTO) 0.7 % (0.0-2.0); EOSINOPHILS % (AUTO) 0.4 % (0.0-4.0); HEMATOCRIT 41.1 % (36-48); HEMOGLOBIN 13.4 g/dL (12.0-16.0); LYMPHOCYTES # (AUTO) 1.5 K/uL (1.0-5.5); LYMPHOCYTES % (AUTO) 18.6 % (20.5-51.5); MEAN CORPUSCULAR HEMOGLOBIN 34 pg (27-31); MEAN CORPUSCULAR HGB CONC 33 % (32-36); MEAN CORPUSCULAR VOLUME 103 fL (79.0-98.0); MONOCYTES # (AUTO) 0.6 K/uL (0.0-1.0); NEUTROPHILS # (AUTO) 5.9 K/uL (1.8-7.7); NEUTROPHILS % (AUTO) 72.3 % (40.0-70.0); PLATELET COUNT (AUTO) 210 K/uL (130-430); RED BLOOD CELL COUNT(AUTO) 3.98 MIL/uL (4.2-6.2); RED CELL DISTRIBUTION WIDTH 13.3 % (9.0-15.0); WHITE BLOOD COUNT (AUTO) 8.1 K/uL (4.8-10.8)
[2023-02-24 13:52] LABS: BACTERIA,URINE FEW /HPF (None Seen); RBC,URINE 0-3 /HPF (0-3); WBC,URINE 0-3 /HPF (0-3)
[2023-02-24 13:57] LABS: ALANINE AMINOTRANSFERASE 17 U/L (12-78); ALBUMIN 3.3 g/dL (3.4-4.8); ASPARTATE AMINOTRANSFERASE 13 U/L (10-37); TOTAL BILIRUBIN 0.5 mg/dL (0.0-1.0)
[2023-02-24 14:00] VITALS: BP_SYST 102; PULSE 79; RESP 18; TEMP 98.3; O2SAT 94
[2023-02-24 14:13] LABS: ANION GAP 11 (5-15); CALCIUM 8.7 mg/dL (8.4-11.0); CHLORIDE 105 mmol/L (98-107); CREATININE 1.12 mg/dL (0.55-1.30); GLUCOSE 129 mg/dL (74-106); UREA NITROGEN, BLOOD 19 mg/dL (8-21)
--- NOTE | 2023-02-24 15:11 | NUR ---
Patient given written and verbal discharge instructions and verbalizes understanding. ER MD discussed with patient the results and treatment provided. Patient in stable condition. ID arm band removed. IV catheter removed intact and dressing applied, no active bleeding. Patient educated on pain management and to follow up with PMD. Opportunity for questions provided and answered. Medication side effect fact sheet provided.
== END 2023-02-24 15:11 | disposition home or self-care (01) ==
LOC: SED 11:54
DX: A08.4 Viral intestinal infection, unspecified (principal); R10.31 Right lower quadrant pain; R11.10 Vomiting, unspecified; R19.7 Diarrhea, unspecified; E78.5 Hyperlipidemia, unspecified; Z88.0 Allergy status to penicillin; Z79.899 Other long term (current) drug therapy
CPT/HCPCS: 99285; 74176; 96374; 96361; 80053; 81000; 85025; 87040; 36415; 76376; J1885; J7030

== ENCOUNTER 2023-07-09 12:33 | Inpatient (IN) | payer BC ==
[~2023-07-09] VITALS: Ht 162.6 cm; Wt 72.6 kg
[2023-07-09 12:35] VITALS: BP_SYST 134; PULSE 74; RESP 18; TEMP 97.5; O2SAT 98
[2023-07-09] MEDS ORDERED: NACL 0.9% 1,000 ML IV ONE (13:00)
[2023-07-09] MEDS ORDERED: METOCLOPRAMIDE HCL 10 MG/2 ML VIAL IVP ONE (13:00)
[2023-07-09] MEDS ORDERED: MECLIZINE HCL 25 MG TABLET (ANITVERT) PO ONE (13:00)
[2023-07-09 13:18] LABS: BASOPHILS # (AUTO) 0.1 K/uL (0.0-0.2); BASOPHILS % (AUTO) 1.4 % (0.0-2.0); EOSINOPHILS % (AUTO) 0.7 % (0.0-4.0); HEMOGLOBIN 15.4 g/dL (12.0-16.0); LYMPHOCYTES # (AUTO) 1.4 K/uL (1.0-5.5); LYMPHOCYTES % (AUTO) 25.6 % (20.5-51.5); MEAN CORPUSCULAR HEMOGLOBIN 34 pg (27-31); MEAN CORPUSCULAR HGB CONC 32 % (32-36); MEAN CORPUSCULAR VOLUME 105 fL (79.0-98.0); MONOCYTES # (AUTO) 0.3 K/uL (0.0-1.0); MONOCYTES % (AUTO) 6.1 % (1.7-9.3); NEUTROPHILS # (AUTO) 3.7 K/uL (1.8-7.7); NEUTROPHILS % (AUTO) 66.2 % (40.0-70.0); PLATELET COUNT (AUTO) 277 K/uL (130-430); RED BLOOD CELL COUNT(AUTO) 4.58 MIL/uL (4.2-6.2); RED CELL DISTRIBUTION WIDTH 15.3 % (9.0-15.0); WHITE BLOOD COUNT (AUTO) 5.6 K/uL (4.8-10.8)
[2023-07-09] MEDS ORDERED: dilTIAZem HCL IVP 5 MG/ML VIAL IVP ONE (14:15)
[2023-07-09 14:17] LABS: ANION GAP 14 (5-15); CALCIUM 8.9 mg/dL (8.4-11.0); CARBON DIOXIDE 24 mmol/L (23-29); CHLORIDE 106 mmol/L (98-107); CREATININE 0.94 mg/dL (0.55-1.30); GLUCOSE 89 mg/dL (74-106); POTASSIUM 4.1 mmol/L (3.5-5.1); SODIUM SERUM 144 mmol/L (136-145); UREA NITROGEN, BLOOD 10 mg/dL (8-21)
[2023-07-09 14:19] LABS: ACETONE, SERUM NEGATIVE (NEGATIVE)
[2023-07-09 14:20] LABS: INR 1.2 (0.8-1.2); PROTHROMBIN TIME 12.4 SECS (9.5-12.5)
[2023-07-09 14:31] LABS: ALANINE AMINOTRANSFERASE 39 U/L (12-78); ALBUMIN 2.5 g/dL (3.4-4.8); AMYLASE 35 U/L (0-100); ASPARTATE AMINOTRANSFERASE 51 U/L (10-37); LIPASE 26 U/L (16-77); TOTAL BILIRUBIN 0.6 mg/dL (0.0-1.0); TOTAL PROTEIN, SERUM 6.1 g/dL (6.4-8.3)
[2023-07-09 14:41] LABS: BILIRUBIN,URINE NEGATIVE (NEGATIVE); BLOOD, URINE 3+ (NEGATIVE); CLARITY/URINE CLOUDY (CLEAR); COLOR,URINE YELLOW (YELLOW); GLUCOSE,URINE NEGATIVE (NEGATIVE); KETONES,URINE TRACE (NEGATIVE); LEUKOCYTE ESTERASE ,URINE 1+ (NEGATIVE); NITRITE, URINE POSITIVE (NEGATIVE); PROTEIN URINE 2+ (NEGATIVE); UROBILINOGEN,URINE 0.2 (0.2-1.0)
[2023-07-09 14:49] LABS: BACTERIA,URINE MANY /HPF (None Seen); MUCUS,URINE 1+ /LPF (None Seen); WBC,URINE 80-100 /HPF (0-3)
[2023-07-09] MEDS ORDERED: LEVOFLOXACIN 250 MG/D5W 50 ML IV ONE ×2 (15:15→23:20)
[2023-07-09] MEDS ORDERED: VANCOMYCIN HCL 750 MG in NS 250 ML IV ONE (15:30)
[2023-07-09] MEDS ORDERED: NACL 0.9% 500 ML IV ONE (15:30)
[2023-07-09] MEDS ORDERED: NS 500 ML IV ONE (15:30)
[2023-07-09] MEDS ORDERED: NEU300 PO (15:33)
[2023-07-09] MEDS ORDERED: TRAM50TA2 PO (15:33)
[2023-07-09] MEDS ORDERED: METO-442 PO (15:33)
[2023-07-09] MEDS ORDERED: APIX5TAB PO (15:33)
[2023-07-09] MEDS ORDERED: PANT20TA2 PO (15:33)
[2023-07-09] MEDS ORDERED: ONDA-8 TL (15:33)
[2023-07-09] MEDS ORDERED: HYDROcodone/ACETAMIN 5-325 MG TAB (NORCO/ VICODIN) PO PRN ×2 (16:45→17:30)
[2023-07-09] MEDS ORDERED: ONDANSETRON HCL 4 MG/2 ML VIAL IVP PRN (16:45)
[2023-07-09] MEDS ORDERED: ACETAMINOPHEN 325 MG TABLET PO PRN ×2 (16:45→17:30)
[2023-07-09 17:27] LABS: INFLUENZA TYPE A Negative (NEGATIVE); INFLUENZA TYPE B NEGATIVE (NEGATIVE)
[2023-07-09] MEDS ORDERED: PANTOPRAZOLE SODIUM 40 MG/VIAL (PROTONIX) IVP ONE (17:30)
[2023-07-09] MEDS ORDERED: VANCOMYCIN HCL 1000 MG/VIAL IV ONE (18:02)
[2023-07-09] MEDS ORDERED: VANCOMYCIN HCL 1 GM/NS PREMIX 250 ML IV ONE (18:15)
[2023-07-09] MEDS: APIXABAN 2.5 MG TABLET PO SCH (20:31)
[2023-07-09] MEDS: METOPROLOL TARTRATE 50 MG TABLET PO SCH (20:32)
[2023-07-09] MEDS: HYDROmorphone 2 MG/ML VIAL IVP PRN (21:40)
[2023-07-09 22:05] VITALS: BP_SYST 113; PULSE 93; RESP 18; TEMP 97.5; O2SAT 94
[2023-07-09] MEDS ORDERED: LEVOFLOXACIN 250 MG/D5W 50 ML IV SCH (22:15)
[2023-07-10] VITALS (23 sets, daily range): BP systolic 111–157; PULSE 82–136; RESP 10–38; TEMP 97.2–98.1; O2SAT 89–98
[2023-07-10] MEDS: HYDROmorphone 2 MG/ML VIAL IVP PRN ×3 (02:30→06:30)
[2023-07-10 05:05] LABS: BASOPHILS # (AUTO) 0.1 K/uL (0.0-0.2); BASOPHILS % (AUTO) 2.3 % (0.0-2.0); EOSINOPHILS # (AUTO) 0.1 K/uL (0.0-0.4); EOSINOPHILS % (AUTO) 2.5 % (0.0-4.0); HEMATOCRIT 37.7 % (36-48); HEMOGLOBIN 11.9 g/dL (12.0-16.0); LYMPHOCYTES # (AUTO) 1.5 K/uL (1.0-5.5); LYMPHOCYTES % (AUTO) 31.2 % (20.5-51.5); MEAN CORPUSCULAR HEMOGLOBIN 33 pg (27-31); MEAN CORPUSCULAR HGB CONC 32 % (32-36); MEAN CORPUSCULAR VOLUME 105 fL (79.0-98.0); MONOCYTES # (AUTO) 0.5 K/uL (0.0-1.0); MONOCYTES % (AUTO) 10.9 % (1.7-9.3); NEUTROPHILS # (AUTO) 2.6 K/uL (1.8-7.7); NEUTROPHILS % (AUTO) 53.1 % (40.0-70.0); PLATELET COUNT (AUTO) 236 K/uL (130-430); RED BLOOD CELL COUNT(AUTO) 3.58 MIL/uL (4.2-6.2); WHITE BLOOD COUNT (AUTO) 4.9 K/uL (4.8-10.8)
[2023-07-10 05:41] LABS: ALANINE AMINOTRANSFERASE 36 U/L (12-78); ALBUMIN 2.3 g/dL (3.4-4.8); ANION GAP 11 (5-15); ASPARTATE AMINOTRANSFERASE 45 U/L (10-37); CALCIUM 8.3 mg/dL (8.4-11.0); CARBON DIOXIDE 24 mmol/L (23-29); CHLORIDE 104 mmol/L (98-107); CREATININE 0.99 mg/dL (0.55-1.30); GLUCOSE 102 mg/dL (74-106); POTASSIUM 4.7 mmol/L (3.5-5.1); SODIUM SERUM 139 mmol/L (136-145); TOTAL BILIRUBIN 0.7 mg/dL (0.0-1.0); TOTAL PROTEIN, SERUM 5.7 g/dL (6.4-8.3); UREA NITROGEN, BLOOD 13 mg/dL (8-21)
[2023-07-10] MEDS: PANTOPRAZOLE SODIUM 40 MG/VIAL (PROTONIX) IVP SCH (08:15)
[2023-07-10] MEDS: APIXABAN 2.5 MG TABLET PO SCH ×2 (08:15→21:08)
[2023-07-10] MEDS: GABAPENTIN 300 MG CAPSULE PO SCH (08:16)
[2023-07-10] MEDS: ATORVASTATIN 20 MG TABLET PO SCH (08:16)
[2023-07-10] MEDS: METOPROLOL TARTRATE 50 MG TABLET PO SCH ×2 (08:19→21:09)
[2023-07-10] MEDS ORDERED: DIGOXIN 0.5 MG/2 ML AMP IVP ONE (13:00)
[2023-07-10] MEDS ORDERED: DIGOXIN 0.5 MG/2 ML AMP ONE (13:17)
[2023-07-10] MEDS ORDERED: DIGOXIN 0.125 MG TABLET PO ONE (19:00)
[2023-07-10] MEDS ORDERED: GLUCOSE (DEXTROSE) ORAL GEL -Adults PO PRN (19:30)
[2023-07-10] MEDS ORDERED: DEXTROSE 50% JECT 50 ML DISP.SYRIN IVP PRN (19:30)
[2023-07-10] MEDS ORDERED: INSULIN LISPRO SLIDING SCALE 100 UNITS/ML, 3 ML VIAL (humaLOG) SUBCUT PRN (19:30)
[2023-07-10] MEDS ORDERED: DIPHENHYDRAMINE INJ 50 MG/ML VIAL IVP PRN (21:15)
[2023-07-10] MEDS ORDERED: LORazepam 2 MG/ML VIAL IVP ONE (22:15)
[2023-07-10] MEDS ORDERED: LORazepam 2 MG/ML VIAL IVP PRN (22:15)
[2023-07-11] VITALS: BP_SYST 128; PULSE 118; RESP 18; TEMP 98.2; O2SAT 94
[2023-07-11] MEDS ORDERED: DIGOXIN 0.5 MG/2 ML AMP IVP ONE (01:00)
[2023-07-11 06:21] LABS: BASOPHILS % (AUTO) 0.9 % (0.0-2.0); EOSINOPHILS % (AUTO) 0.7 % (0.0-4.0); HEMATOCRIT 38.1 % (36-48); HEMOGLOBIN 12.2 g/dL (12.0-16.0); LYMPHOCYTES # (AUTO) 0.7 K/uL (1.0-5.5); LYMPHOCYTES % (AUTO) 15.5 % (20.5-51.5); MEAN CORPUSCULAR HEMOGLOBIN 34 pg (27-31); MEAN CORPUSCULAR HGB CONC 32 % (32-36); MEAN CORPUSCULAR VOLUME 105 fL (79.0-98.0); MONOCYTES # (AUTO) 0.3 K/uL (0.0-1.0); MONOCYTES % (AUTO) 6.8 % (1.7-9.3); NEUTROPHILS # (AUTO) 3.3 K/uL (1.8-7.7); NEUTROPHILS % (AUTO) 76.1 % (40.0-70.0); PLATELET COUNT (AUTO) 195 K/uL (130-430); RED BLOOD CELL COUNT(AUTO) 3.61 MIL/uL (4.2-6.2); RED CELL DISTRIBUTION WIDTH 15.1 % (9.0-15.0); WHITE BLOOD COUNT (AUTO) 4.3 K/uL (4.8-10.8)
[2023-07-11 06:50] LABS: ALANINE AMINOTRANSFERASE 27 U/L (12-78); ALBUMIN 2.3 g/dL (3.4-4.8); ANION GAP 11 (5-15); ASPARTATE AMINOTRANSFERASE 28 U/L (10-37); CALCIUM 8.6 mg/dL (8.4-11.0); CARBON DIOXIDE 25 mmol/L (23-29); CHLORIDE 103 mmol/L (98-107); GLUCOSE 119 mg/dL (74-106); POTASSIUM 3.8 mmol/L (3.5-5.1); SODIUM SERUM 139 mmol/L (136-145); TOTAL BILIRUBIN 0.7 mg/dL (0.0-1.0); TOTAL PROTEIN, SERUM 5.4 g/dL (6.4-8.3); UREA NITROGEN, BLOOD 13 mg/dL (8-21)
[2023-07-11 06:59] LABS: HEMOGLOBIN A1C 5.46 % (<5.7)
[2023-07-11 08:17] VITALS: BP_SYST 115; PULSE 91; RESP 20; TEMP 96.9; O2SAT 96
[2023-07-11] MEDS: ATORVASTATIN 20 MG TABLET PO SCH (08:51)
[2023-07-11] MEDS: GABAPENTIN 300 MG CAPSULE PO SCH (08:51)
[2023-07-11] MEDS: APIXABAN 2.5 MG TABLET PO SCH ×2 (08:52→20:36)
[2023-07-11] MEDS: METOPROLOL TARTRATE 50 MG TABLET PO SCH ×2 (08:52→20:37)
[2023-07-11] MEDS: PANTOPRAZOLE SODIUM 40 MG/VIAL (PROTONIX) IVP SCH (08:53)
[2023-07-11] MEDS ORDERED: DIGOXIN 0.25 MG TABLET PO ONE (14:45)
[2023-07-11 15:21] VITALS: BP_SYST 137; PULSE 101; RESP 20; TEMP 97.6; O2SAT 96
[2023-07-11 20:00] VITALS: BP_SYST 121; PULSE 98; RESP 18; TEMP 97.4; O2SAT 97
[2023-07-11] MEDS: QUEtiapine FUMARATE 25 MG TABLET PO SCH (20:37)
[2023-07-11] MEDS: CEFEPIME 1 GM in D5W 50 ML IV SCH ×3 (22:45)
[2023-07-11 23:22] VITALS: O2SAT 97
[2023-07-12] VITALS (8 sets, daily range): BP systolic 87–122; PULSE 78–110; RESP 16–20; TEMP 97.3–98.3; O2SAT 97–99
[2023-07-12] MEDS: METOPROLOL TARTRATE 50 MG TABLET PO SCH ×3 (06:00→21:40)
[2023-07-12 07:21] LABS: ALANINE AMINOTRANSFERASE 21 U/L (12-78); ALBUMIN 2.2 g/dL (3.4-4.8); ANION GAP 8 (5-15); ASPARTATE AMINOTRANSFERASE 31 U/L (10-37); CALCIUM 8.4 mg/dL (8.4-11.0); CARBON DIOXIDE 24 mmol/L (23-29); CHLORIDE 106 mmol/L (98-107); CREATININE 0.82 mg/dL (0.55-1.30); GLUCOSE 98 mg/dL (74-106); POTASSIUM 3.8 mmol/L (3.5-5.1); SODIUM SERUM 138 mmol/L (136-145); TOTAL BILIRUBIN 0.5 mg/dL (0.0-1.0); TOTAL PROTEIN, SERUM 5.5 g/dL (6.4-8.3); UREA NITROGEN, BLOOD 10 mg/dL (8-21)
[2023-07-12 07:28] LABS: BASOPHILS # (AUTO) 0.1 K/uL (0.0-0.2); BASOPHILS % (AUTO) 1.4 % (0.0-2.0); EOSINOPHILS # (AUTO) 0.1 K/uL (0.0-0.4); EOSINOPHILS % (AUTO) 2.6 % (0.0-4.0); HEMATOCRIT 41.4 % (36-48); HEMOGLOBIN 13.1 g/dL (12.0-16.0); MEAN CORPUSCULAR HEMOGLOBIN 34 pg (27-31); MEAN CORPUSCULAR HGB CONC 32 % (32-36); MEAN CORPUSCULAR VOLUME 107 fL (79.0-98.0); MONOCYTES # (AUTO) 0.4 K/uL (0.0-1.0); MONOCYTES % (AUTO) 9.6 % (1.7-9.3); NEUTROPHILS # (AUTO) 2.1 K/uL (1.8-7.7); NEUTROPHILS % (AUTO) 44.4 % (40.0-70.0); PLATELET COUNT (AUTO) 201 K/uL (130-430); RED BLOOD CELL COUNT(AUTO) 3.89 MIL/uL (4.2-6.2); RED CELL DISTRIBUTION WIDTH 15.1 % (9.0-15.0); WHITE BLOOD COUNT (AUTO) 4.7 K/uL (4.8-10.8)
[2023-07-12] MEDS: PANTOPRAZOLE SODIUM 40 MG/VIAL (PROTONIX) IVP SCH (08:36)
[2023-07-12] MEDS: DIGOXIN 0.25 MG TABLET PO SCH (08:37)
[2023-07-12] MEDS: ATORVASTATIN 20 MG TABLET PO SCH (08:37)
[2023-07-12] MEDS: APIXABAN 2.5 MG TABLET PO SCH ×2 (08:44→21:39)
[2023-07-12] MEDS: QUEtiapine FUMARATE 25 MG TABLET PO SCH (21:40)
[2023-07-12] MEDS: SULFAMETHOXAZOLE/TRIMETHOPR DS 1 TABLET PO SCH (21:40)
[2023-07-12] MEDS: CEFEPIME 1 GM in D5W 50 ML IV SCH (21:42)
[2023-07-13] VITALS: BP_SYST 103; PULSE 73; RESP 18; TEMP 98; O2SAT 96
[2023-07-13] MEDS: METOPROLOL TARTRATE 50 MG TABLET PO SCH ×2 (06:00→14:00)
[2023-07-13 08:08] LABS: ALANINE AMINOTRANSFERASE 21 U/L (12-78); ALBUMIN 2.2 g/dL (3.4-4.8); ANION GAP 7 (5-15); ASPARTATE AMINOTRANSFERASE 25 U/L (10-37); CALCIUM 8.5 mg/dL (8.4-11.0); CARBON DIOXIDE 24 mmol/L (23-29); CHLORIDE 105 mmol/L (98-107); CREATININE 0.76 mg/dL (0.55-1.30); GLUCOSE 92 mg/dL (74-106); POTASSIUM 3.7 mmol/L (3.5-5.1); SODIUM SERUM 136 mmol/L (136-145); TOTAL BILIRUBIN 0.4 mg/dL (0.0-1.0); TOTAL PROTEIN, SERUM 5.4 g/dL (6.4-8.3); UREA NITROGEN, BLOOD 10 mg/dL (8-21)
[2023-07-13 08:24] VITALS: BP_SYST 122; PULSE 77; RESP 18; TEMP 97.7; O2SAT 99
[2023-07-13 08:26] LABS: EOSINOPHILS # (AUTO) 0.1 K/uL (0.0-0.4); EOSINOPHILS % (AUTO) 2.9 % (0.0-4.0); HEMATOCRIT 38.4 % (36-48); HEMOGLOBIN 12.2 g/dL (12.0-16.0); LYMPHOCYTES # (AUTO) 1.6 K/uL (1.0-5.5); LYMPHOCYTES % (AUTO) 32.8 % (20.5-51.5); MEAN CORPUSCULAR HEMOGLOBIN 34 pg (27-31); MEAN CORPUSCULAR HGB CONC 32 % (32-36); MEAN CORPUSCULAR VOLUME 106 fL (79.0-98.0); MONOCYTES # (AUTO) 0.6 K/uL (0.0-1.0); MONOCYTES % (AUTO) 12.1 % (1.7-9.3); NEUTROPHILS # (AUTO) 2.4 K/uL (1.8-7.7); NEUTROPHILS % (AUTO) 51.2 % (40.0-70.0); PLATELET COUNT (AUTO) 205 K/uL (130-430); RED BLOOD CELL COUNT(AUTO) 3.62 MIL/uL (4.2-6.2); RED CELL DISTRIBUTION WIDTH 14.8 % (9.0-15.0); WHITE BLOOD COUNT (AUTO) 4.7 K/uL (4.8-10.8)
[2023-07-13] MEDS: PANTOPRAZOLE SODIUM 40 MG/VIAL (PROTONIX) IVP SCH (08:51)
[2023-07-13] MEDS: SULFAMETHOXAZOLE/TRIMETHOPR DS 1 TABLET PO SCH (08:52)
[2023-07-13] MEDS: ATORVASTATIN 20 MG TABLET PO SCH (08:53)
[2023-07-13] MEDS: DIGOXIN 0.25 MG TABLET PO SCH (08:53)
[2023-07-13] MEDS: APIXABAN 2.5 MG TABLET PO SCH (08:55)
[2023-07-13 09:17] VITALS: O2SAT 99
[2023-07-13 12:37] VITALS: BP_SYST 92; PULSE 85; RESP 18; TEMP 96.4; O2SAT 95
[2023-07-13] MEDS ORDERED: SULF1TAB48 PO (13:32)
[2023-07-13] MEDS ORDERED: METO-442 PO (13:32)
[2023-07-13] MEDS ORDERED: DIGO250T PO (13:32)
[2023-07-13 14:10] VITALS: BP_SYST 92; PULSE 85; RESP 18; TEMP 96.4; O2SAT 95
== END 2023-07-13 15:35 | disposition home or self-care (01) | DRG 640 ==
LOC: SED 12:33 → SIC 16:42 → STU 07-10 22:46
PROVIDERS: ADMIT Family Medicine; ATTEND Family Medicine
DX: E86.0 Dehydration (principal); E43 Unspecified severe protein-calorie malnutrition; N39.0 Urinary tract infection, site not specified; I48.20 Chronic atrial fibrillation, unspecified; E87.20 Acidosis, unspecified; Z96.642 Presence of left artificial hip joint; B96.1 Klebsiella pneumoniae [K. pneumoniae] as the cause of diseases classified elsewhere; E78.5 Hyperlipidemia, unspecified; Z20.822 Contact with and (suspected) exposure to COVID-19; M25.552 Pain in left hip; W18.39XA Other fall on same level, initial encounter; D64.9 Anemia, unspecified; Z98.1 Arthrodesis status; Z95.0 Presence of cardiac pacemaker; Z88.0 Allergy status to penicillin; Z87.440 Personal history of urinary (tract) infections; Z87.11 Personal history of peptic ulcer disease; Z79.01 Long term (current) use of anticoagulants; Z79.2 Long term (current) use of antibiotics; Z79.899 Other long term (current) drug therapy; Z68.27 Body mass index [BMI] 27.0-27.9, adult; Y93.89 Activity, other specified; Y92.89 Other specified places as the place of occurrence of the external cause; Y99.8 Other external cause status
CPT/HCPCS: 36415; 70450-TC; 71045; 73552; 76376; 80053; 81000; 81001; 81015; 82009; 82150; 82962; 83037; 83605; 83690; 84484; 85025; 85610-TC; 85730-TC; 87040; 87086; 87230-TC; 93005; 93306; 93880; 96361; 96374; 96375; 97110-GP; 97116-GP; 97163-GP; 97530-GP; 99291; C9113; G0378; J0692; J1160; J1170; J1956; J2060; J2765; J3370; J3490; J7060; J8597

== ENCOUNTER 2023-07-25 11:04 | Inpatient (IN) | payer BC ==
[~2023-07-25] VITALS: Ht 162.6 cm; Wt 72.6 kg
[~2023-07-25 11:04] MED LIST changes: -AMIO100T4 PO; +DIGO250T PO; +METO-442 PO; -METO25TA6 PO; +ONDA-8 TL; +SULF1TAB48 PO
[2023-07-25] MEDS ORDERED: NACL 0.9% 1,000 ML IV ONE (11:30)
[2023-07-25 11:55] LABS: BASOPHILS # (AUTO) 0.1 K/uL (0.0-0.2); EOSINOPHILS # (AUTO) 0.2 K/uL (0.0-0.4); HEMATOCRIT 46.2 % (36-48); HEMOGLOBIN 14.9 g/dL (12.0-16.0); LYMPHOCYTES # (AUTO) 1.3 K/uL (1.0-5.5); LYMPHOCYTES % (AUTO) 15.9 % (20.5-51.5); MEAN CORPUSCULAR HEMOGLOBIN 34 pg (27-31); MEAN CORPUSCULAR HGB CONC 32 % (32-36); MEAN CORPUSCULAR VOLUME 104 fL (79.0-98.0); MONOCYTES # (AUTO) 0.7 K/uL (0.0-1.0); MONOCYTES % (AUTO) 8.9 % (1.7-9.3); NEUTROPHILS # (AUTO) 5.7 K/uL (1.8-7.7); NEUTROPHILS % (AUTO) 72.2 % (40.0-70.0); PLATELET COUNT (AUTO) 248 K/uL (130-430); RED BLOOD CELL COUNT(AUTO) 4.45 MIL/uL (4.2-6.2); RED CELL DISTRIBUTION WIDTH 14.3 % (9.0-15.0); WHITE BLOOD COUNT (AUTO) 7.9 K/uL (4.8-10.8)
[2023-07-25 12:05] LABS: ANION GAP 9 (5-15); CALCIUM 9.4 mg/dL (8.4-11.0); CARBON DIOXIDE 30 mmol/L (23-29); CHLORIDE 97 mmol/L (98-107); CREATININE 1.39 mg/dL (0.55-1.30); GLUCOSE 125 mg/dL (74-106); POTASSIUM 4.3 mmol/L (3.5-5.1); SODIUM SERUM 136 mmol/L (136-145); UREA NITROGEN, BLOOD 13 mg/dL (8-21)
[2023-07-25] MEDS ORDERED: KETOROLAC TROMETHAMINE 30 MG VIAL IVP ONE (12:15)
[2023-07-25] MEDS ORDERED: ONDANSETRON HCL 4 MG/2 ML VIAL IVP ONE ×2 (12:15→12:45)
[2023-07-25 12:19] LABS: BILIRUBIN,URINE NEGATIVE (NEGATIVE); CLARITY/URINE SL CLOUDY (CLEAR); COLOR,URINE YELLOW (YELLOW); GLUCOSE,URINE NEGATIVE (NEGATIVE); KETONES,URINE NEGATIVE (NEGATIVE); LEUKOCYTE ESTERASE ,URINE 2+ (NEGATIVE); NITRITE, URINE NEGATIVE (NEGATIVE); PROTEIN URINE NEGATIVE (NEGATIVE); UROBILINOGEN,URINE 0.2 (0.2-1.0)
[2023-07-25 12:30] LABS: BLOOD, URINE TRACE (NEGATIVE)
[2023-07-25 12:35] LABS: BACTERIA,URINE FEW /HPF (None Seen)
[2023-07-25] MEDS ORDERED: PANTOPRAZOLE SODIUM 40 MG/VIAL (PROTONIX) IVP ONE (14:15)
[2023-07-25] MEDS ORDERED: FAMOTIDINE PF 20 MG/2 ML VIAL IVP ONE (14:15)
[2023-07-25] MEDS ORDERED: KETOROLAC TROMETHAMINE 15 MG VIAL IVP ONE (18:45)
[2023-07-25] MEDS ORDERED: ONDANSETRON HCL 4 MG/2 ML VIAL IVP PRN (22:45)
[2023-07-25] MEDS: D5/0.45 NS 1,000 ML IV SCH (23:31)
[2023-07-26] MEDS ORDERED: PANTOPRAZOLE SODIUM 40 MG/VIAL (PROTONIX) IVP ONE (10:45)
[2023-07-26 11:02] LABS: BASOPHILS # (AUTO) 0.1 K/uL (0.0-0.2); BASOPHILS % (AUTO) 1.2 % (0.0-2.0); EOSINOPHILS # (AUTO) 0.2 K/uL (0.0-0.4); EOSINOPHILS % (AUTO) 3.7 % (0.0-4.0); HEMATOCRIT 42.7 % (36-48); HEMOGLOBIN 13.9 g/dL (12.0-16.0); LYMPHOCYTES # (AUTO) 1.8 K/uL (1.0-5.5); LYMPHOCYTES % (AUTO) 29.3 % (20.5-51.5); MEAN CORPUSCULAR HEMOGLOBIN 34 pg (27-31); MEAN CORPUSCULAR HGB CONC 33 % (32-36); MEAN CORPUSCULAR VOLUME 104 fL (79.0-98.0); MONOCYTES # (AUTO) 0.7 K/uL (0.0-1.0); MONOCYTES % (AUTO) 11.1 % (1.7-9.3); NEUTROPHILS # (AUTO) 3.3 K/uL (1.8-7.7); NEUTROPHILS % (AUTO) 54.7 % (40.0-70.0); PLATELET COUNT (AUTO) 170 K/uL (130-430); RED BLOOD CELL COUNT(AUTO) 4.09 MIL/uL (4.2-6.2); RED CELL DISTRIBUTION WIDTH 13.9 % (9.0-15.0); WHITE BLOOD COUNT (AUTO) 6.1 K/uL (4.8-10.8)
[2023-07-26 11:05] LABS: ALANINE AMINOTRANSFERASE 28 U/L (12-78); ALBUMIN 2.6 g/dL (3.4-4.8); ANION GAP 5 (5-15); ASPARTATE AMINOTRANSFERASE 40 U/L (10-37); CARBON DIOXIDE 30 mmol/L (23-29); CHLORIDE 99 mmol/L (98-107); CREATININE 1.35 mg/dL (0.55-1.30); GLUCOSE 117 mg/dL (74-106); POTASSIUM 4.1 mmol/L (3.5-5.1); SODIUM SERUM 134 mmol/L (136-145); TOTAL BILIRUBIN 0.5 mg/dL (0.0-1.0); TOTAL PROTEIN, SERUM 6.1 g/dL (6.4-8.3); UREA NITROGEN, BLOOD 15 mg/dL (8-21)
[2023-07-26] MEDS: D5/0.45 NS 1,000 ML IV SCH ×2 (11:30→21:59)
[2023-07-26 13:15] VITALS: BP_SYST 144; PULSE 89; RESP 18; TEMP 98.2; O2SAT 98
[2023-07-26 16:00] VITALS: BP_SYST 141; PULSE 70; RESP 20; TEMP 97.3; O2SAT 98
[2023-07-26 20:00] VITALS: BP_SYST 138; PULSE 70; RESP 20; TEMP 97.3; O2SAT 98
[2023-07-26] MEDS: QUEtiapine FUMARATE 25 MG TABLET PO SCH (21:59)
[2023-07-26 22:00] VITALS: O2SAT 95
[2023-07-27] VITALS (7 sets, daily range): BP systolic 116–137; PULSE 74–86; RESP 16–20; TEMP 97.5–98.7; O2SAT 94–99
[2023-07-27] MEDS: CEFEPIME 1 GM in D5W 50 ML IV SCH ×2
[2023-07-27] MEDS: METOPROLOL TARTRATE 50 MG TABLET PO SCH ×4 (01:41→21:41)
[2023-07-27] MEDS: D5/0.45 NS 1,000 ML IV SCH ×2 (03:15→15:06)
[2023-07-27] MEDS: PANTOPRAZOLE SODIUM 40 MG/VIAL (PROTONIX) IVP SCH (09:00)
[2023-07-27] MEDS ORDERED: PANTOPRAZOLE SODIUM 40 MG TAB PO SCH (09:00)
[2023-07-27] MEDS: GABAPENTIN 300 MG CAPSULE PO SCH (09:00)
[2023-07-27] MEDS: ATORVASTATIN 20 MG TABLET PO SCH (09:00)
[2023-07-27] MEDS: APIXABAN 2.5 MG TABLET PO SCH ×2 (09:00→21:43)
[2023-07-27 09:28] LABS: BASOPHILS # (AUTO) 0.1 K/uL (0.0-0.2); EOSINOPHILS # (AUTO) 0.1 K/uL (0.0-0.4); EOSINOPHILS % (AUTO) 1.3 % (0.0-4.0); HEMATOCRIT 42.7 % (36-48); HEMOGLOBIN 13.4 g/dL (12.0-16.0); LYMPHOCYTES # (AUTO) 1.2 K/uL (1.0-5.5); LYMPHOCYTES % (AUTO) 19.4 % (20.5-51.5); MEAN CORPUSCULAR HEMOGLOBIN 33 pg (27-31); MEAN CORPUSCULAR HGB CONC 32 % (32-36); MEAN CORPUSCULAR VOLUME 105 fL (79.0-98.0); MONOCYTES # (AUTO) 0.7 K/uL (0.0-1.0); MONOCYTES % (AUTO) 11.4 % (1.7-9.3); NEUTROPHILS % (AUTO) 66.9 % (40.0-70.0); PLATELET COUNT (AUTO) 160 K/uL (130-430); RED BLOOD CELL COUNT(AUTO) 4.08 MIL/uL (4.2-6.2); RED CELL DISTRIBUTION WIDTH 14.3 % (9.0-15.0)
[2023-07-27 09:47] LABS: ALANINE AMINOTRANSFERASE 26 U/L (12-78); ALBUMIN 2.5 g/dL (3.4-4.8); ANION GAP 8 (5-15); ASPARTATE AMINOTRANSFERASE 39 U/L (10-37); CALCIUM 9.1 mg/dL (8.4-11.0); CARBON DIOXIDE 29 mmol/L (23-29); CHLORIDE 103 mmol/L (98-107); CREATININE 1.05 mg/dL (0.55-1.30); GLUCOSE 115 mg/dL (74-106); POTASSIUM 3.8 mmol/L (3.5-5.1); SODIUM SERUM 140 mmol/L (136-145); TOTAL BILIRUBIN 0.5 mg/dL (0.0-1.0); TOTAL PROTEIN, SERUM 6.4 g/dL (6.4-8.3); UREA NITROGEN, BLOOD 13 mg/dL (8-21)
[2023-07-27] MEDS: DIGOXIN 0.25 MG TABLET PO SCH (10:28)
[2023-07-27] MEDS: QUEtiapine FUMARATE 25 MG TABLET PO SCH (21:41)
[2023-07-28 00:45] VITALS: BP_SYST 129; PULSE 82; RESP 18; TEMP 98.1; O2SAT 97
[2023-07-28] MEDS: CEFEPIME 1 GM in D5W 50 ML IV SCH (01:44)
[2023-07-28] MEDS: METOPROLOL TARTRATE 50 MG TABLET PO SCH ×3 (06:24→21:08)
[2023-07-28 07:08] LABS: BASOPHILS # (AUTO) 0.1 K/uL (0.0-0.2); BASOPHILS % (AUTO) 0.9 % (0.0-2.0); EOSINOPHILS # (AUTO) 0.2 K/uL (0.0-0.4); EOSINOPHILS % (AUTO) 2.5 % (0.0-4.0); HEMATOCRIT 40.4 % (36-48); HEMOGLOBIN 12.9 g/dL (12.0-16.0); LYMPHOCYTES % (AUTO) 29.1 % (20.5-51.5); MEAN CORPUSCULAR HEMOGLOBIN 33 pg (27-31); MEAN CORPUSCULAR HGB CONC 32 % (32-36); MEAN CORPUSCULAR VOLUME 104 fL (79.0-98.0); MONOCYTES # (AUTO) 0.8 K/uL (0.0-1.0); MONOCYTES % (AUTO) 12.2 % (1.7-9.3); NEUTROPHILS # (AUTO) 3.7 K/uL (1.8-7.7); NEUTROPHILS % (AUTO) 55.3 % (40.0-70.0); PLATELET COUNT (AUTO) 145 K/uL (130-430); RED CELL DISTRIBUTION WIDTH 14.4 % (9.0-15.0); WHITE BLOOD COUNT (AUTO) 6.8 K/uL (4.8-10.8)
[2023-07-28 07:49] LABS: ALANINE AMINOTRANSFERASE 23 U/L (12-78); ALBUMIN 2.3 g/dL (3.4-4.8); ANION GAP 5 (5-15); ASPARTATE AMINOTRANSFERASE 32 U/L (10-37); CALCIUM 8.2 mg/dL (8.4-11.0); CARBON DIOXIDE 30 mmol/L (23-29); CHLORIDE 105 mmol/L (98-107); CREATININE 0.89 mg/dL (0.55-1.30); GLUCOSE 93 mg/dL (74-106); POTASSIUM 3.5 mmol/L (3.5-5.1); SODIUM SERUM 140 mmol/L (136-145); TOTAL BILIRUBIN 0.3 mg/dL (0.0-1.0); TOTAL PROTEIN, SERUM 5.5 g/dL (6.4-8.3); UREA NITROGEN, BLOOD 16 mg/dL (8-21)
[2023-07-28 08:00] VITALS: O2SAT 99
[2023-07-28] MEDS: ATORVASTATIN 20 MG TABLET PO SCH (10:40)
[2023-07-28] MEDS: DIGOXIN 0.25 MG TABLET PO SCH (10:40)
[2023-07-28] MEDS: APIXABAN 2.5 MG TABLET PO SCH ×2 (10:42→21:07)
[2023-07-28] MEDS: GABAPENTIN 300 MG CAPSULE PO SCH (10:43)
[2023-07-28] MEDS: PANTOPRAZOLE SODIUM 40 MG/VIAL (PROTONIX) IVP SCH (10:45)
[2023-07-28 11:30] VITALS: BP_SYST 100; PULSE 68; RESP 17; TEMP 98.2; O2SAT 96
[2023-07-28] MEDS ORDERED: DICLOFENAC SODIUM 25 MG TABLET.DR PO ONE (13:30)
[2023-07-28] MEDS ORDERED: traMADol HCL HCL 50 MG TABLET (ULTRAM) PO PRN (13:30)
[2023-07-28] MEDS: SUCRALFATE 1 GM/10 ML UDC GT SCH ×2 (15:25→21:09)
[2023-07-28] MEDS ORDERED: TRAM50TA2 PO (15:58)
[2023-07-28 16:32] VITALS: BP_SYST 131; PULSE 68; RESP 17; TEMP 98.6; O2SAT 95
[2023-07-28 20:00] VITALS: O2SAT 98
[2023-07-28] MEDS: DICLOFENAC SODIUM 25 MG TABLET.DR PO SCH (21:07)
[2023-07-28] MEDS: QUEtiapine FUMARATE 25 MG TABLET PO SCH (21:08)
[2023-07-29] VITALS: BP_SYST 109; PULSE 60; RESP 16; TEMP 97.5; O2SAT 92
[2023-07-29] MEDS: CEFEPIME 1 GM in D5W 50 ML IV SCH ×2 (01:19→23:26)
[2023-07-29] MEDS: METOPROLOL TARTRATE 50 MG TABLET PO SCH ×3 (06:00→21:39)
[2023-07-29 06:16] LABS: ANION GAP 9 (5-15); CALCIUM 8.9 mg/dL (8.4-11.0); CARBON DIOXIDE 27 mmol/L (23-29); CHLORIDE 103 mmol/L (98-107); GLUCOSE 103 mg/dL (74-106); POTASSIUM 3.9 mmol/L (3.5-5.1); SODIUM SERUM 139 mmol/L (136-145); UREA NITROGEN, BLOOD 17 mg/dL (8-21)
[2023-07-29 07:56] LABS: DIGOXIN 2.8 ng/mL (0.80-2.00)
[2023-07-29 08:00] VITALS: O2SAT 99
[2023-07-29 08:01] LABS: BASOPHILS # (AUTO) 0.1 K/uL (0.0-0.2); BASOPHILS % (AUTO) 0.6 % (0.0-2.0); EOSINOPHILS # (AUTO) 0.2 K/uL (0.0-0.4); EOSINOPHILS % (AUTO) 2.8 % (0.0-4.0); HEMATOCRIT 42.7 % (36-48); HEMOGLOBIN 13.6 g/dL (12.0-16.0); LYMPHOCYTES # (AUTO) 2.6 K/uL (1.0-5.5); LYMPHOCYTES % (AUTO) 31.5 % (20.5-51.5); MEAN CORPUSCULAR HEMOGLOBIN 33 pg (27-31); MEAN CORPUSCULAR HGB CONC 32 % (32-36); MEAN CORPUSCULAR VOLUME 104 fL (79.0-98.0); MONOCYTES # (AUTO) 0.9 K/uL (0.0-1.0); NEUTROPHILS # (AUTO) 4.5 K/uL (1.8-7.7); NEUTROPHILS % (AUTO) 54.1 % (40.0-70.0); PLATELET COUNT (AUTO) 164 K/uL (130-430); RED BLOOD CELL COUNT(AUTO) 4.11 MIL/uL (4.2-6.2); RED CELL DISTRIBUTION WIDTH 14.3 % (9.0-15.0); WHITE BLOOD COUNT (AUTO) 8.3 K/uL (4.8-10.8)
[2023-07-29 08:35] VITALS: BP_SYST 108; PULSE 62; RESP 17; TEMP 97.3; O2SAT 94
[2023-07-29] MEDS: PANTOPRAZOLE SODIUM 40 MG TAB PO SCH (10:01)
[2023-07-29] MEDS: APIXABAN 2.5 MG TABLET PO SCH ×2 (10:03→20:25)
[2023-07-29] MEDS: ATORVASTATIN 20 MG TABLET PO SCH (10:03)
[2023-07-29] MEDS: DICLOFENAC SODIUM 25 MG TABLET.DR PO SCH ×2 (10:03→20:24)
[2023-07-29] MEDS: SUCRALFATE 1 GM/10 ML UDC GT SCH ×3 (10:03→20:25)
[2023-07-29] MEDS: NYSTATIN/TRIAMCIN 15 GM TOPICAL CREAM TP SCH ×2 (10:04→20:24)
[2023-07-29] MEDS: GABAPENTIN 300 MG CAPSULE PO SCH (10:04)
[2023-07-29 11:37] VITALS: BP_SYST 102; PULSE 70; RESP 16; TEMP 98; O2SAT 94
[2023-07-29] MEDS ORDERED: traMADol HCL HCL 50 MG TABLET (ULTRAM) PO PRN (14:30)
[2023-07-29 16:27] VITALS: BP_SYST 112; PULSE 70; RESP 17; TEMP 98.4; O2SAT 94
[2023-07-29 18:53] LABS: BASOPHILS % (AUTO) 0.6 % (0.0-2.0); EOSINOPHILS # (AUTO) 0.1 K/uL (0.0-0.4); EOSINOPHILS % (AUTO) 1.4 % (0.0-4.0); HEMATOCRIT 45.7 % (36-48); HEMOGLOBIN 14.7 g/dL (12.0-16.0); LYMPHOCYTES # (AUTO) 1.1 K/uL (1.0-5.5); LYMPHOCYTES % (AUTO) 12.7 % (20.5-51.5); MEAN CORPUSCULAR HEMOGLOBIN 34 pg (27-31); MEAN CORPUSCULAR HGB CONC 32 % (32-36); MEAN CORPUSCULAR VOLUME 104 fL (79.0-98.0); MONOCYTES # (AUTO) 0.9 K/uL (0.0-1.0); MONOCYTES % (AUTO) 10.4 % (1.7-9.3); NEUTROPHILS # (AUTO) 6.2 K/uL (1.8-7.7); NEUTROPHILS % (AUTO) 74.9 % (40.0-70.0); PLATELET COUNT (AUTO) 137 K/uL (130-430); RED BLOOD CELL COUNT(AUTO) 4.38 MIL/uL (4.2-6.2); RED CELL DISTRIBUTION WIDTH 14.5 % (9.0-15.0); WHITE BLOOD COUNT (AUTO) 8.3 K/uL (4.8-10.8)
[2023-07-29 20:00] VITALS: BP_SYST 115; PULSE 66; RESP 18; TEMP 97.6; O2SAT 97
[2023-07-29] MEDS: QUEtiapine FUMARATE 25 MG TABLET PO SCH (20:24)
[2023-07-30 00:34] VITALS: BP_SYST 150; PULSE 57; RESP 20; TEMP 97.3; O2SAT 95
[2023-07-30] MEDS: METOPROLOL TARTRATE 50 MG TABLET PO SCH ×3 (06:05→21:15)
[2023-07-30 08:00] VITALS: BP_SYST 128; PULSE 69; RESP 18; TEMP 97.8; O2SAT 95
[2023-07-30 08:00] LABS: BASOPHILS % (AUTO) 0.4 % (0.0-2.0); EOSINOPHILS # (AUTO) 0.1 K/uL (0.0-0.4); EOSINOPHILS % (AUTO) 1.3 % (0.0-4.0); HEMATOCRIT 43.1 % (36-48); HEMOGLOBIN 13.6 g/dL (12.0-16.0); LYMPHOCYTES # (AUTO) 0.8 K/uL (1.0-5.5); LYMPHOCYTES % (AUTO) 12.5 % (20.5-51.5); MEAN CORPUSCULAR HEMOGLOBIN 33 pg (27-31); MEAN CORPUSCULAR HGB CONC 32 % (32-36); MEAN CORPUSCULAR VOLUME 104 fL (79.0-98.0); MONOCYTES # (AUTO) 0.7 K/uL (0.0-1.0); MONOCYTES % (AUTO) 10.1 % (1.7-9.3); NEUTROPHILS # (AUTO) 4.9 K/uL (1.8-7.7); NEUTROPHILS % (AUTO) 75.7 % (40.0-70.0); PLATELET COUNT (AUTO) 140 K/uL (130-430); RED BLOOD CELL COUNT(AUTO) 4.14 MIL/uL (4.2-6.2); RED CELL DISTRIBUTION WIDTH 14.4 % (9.0-15.0); WHITE BLOOD COUNT (AUTO) 6.5 K/uL (4.8-10.8)
[2023-07-30 08:06] LABS: ANION GAP 6 (5-15); CALCIUM 8.2 mg/dL (8.4-11.0); CARBON DIOXIDE 29 mmol/L (23-29); CHLORIDE 104 mmol/L (98-107); CREATININE 0.92 mg/dL (0.55-1.30); GLUCOSE 104 mg/dL (74-106); POTASSIUM 3.5 mmol/L (3.5-5.1); SODIUM SERUM 139 mmol/L (136-145); UREA NITROGEN, BLOOD 15 mg/dL (8-21)
[2023-07-30] MEDS: ATORVASTATIN 20 MG TABLET PO SCH (08:37)
[2023-07-30] MEDS: DICLOFENAC SODIUM 25 MG TABLET.DR PO SCH ×2 (08:37→21:15)
[2023-07-30] MEDS: SUCRALFATE 1 GM/10 ML UDC GT SCH ×3 (08:37→21:14)
[2023-07-30] MEDS: GABAPENTIN 300 MG CAPSULE PO SCH (08:37)
[2023-07-30] MEDS: PANTOPRAZOLE SODIUM 40 MG TAB PO SCH (08:38)
[2023-07-30] MEDS: APIXABAN 2.5 MG TABLET PO SCH ×2 (08:40→21:17)
[2023-07-30 11:29] VITALS: BP_SYST 130; PULSE 65; RESP 19; TEMP 97.6; O2SAT 97
[2023-07-30] MEDS: NYSTATIN/TRIAMCIN 15 GM TOPICAL CREAM TP SCH ×2 (16:05→21:00)
[2023-07-30 16:13] VITALS: BP_SYST 130; PULSE 68; RESP 18; TEMP 97.7; O2SAT 96
[2023-07-30 20:00] VITALS: BP_SYST 120; PULSE 64; RESP 17; TEMP 97.2; O2SAT 96; O2SAT 97
[2023-07-30] MEDS: QUEtiapine FUMARATE 25 MG TABLET PO SCH (21:15)
[2023-07-30] MEDS: CEFEPIME 1 GM in D5W 50 ML IV SCH (23:30)
[2023-07-31] VITALS: BP_SYST 124; PULSE 61; RESP 17; TEMP 97.3; O2SAT 96
[2023-07-31] MEDS: METOPROLOL TARTRATE 50 MG TABLET PO SCH (05:49)
[2023-07-31 08:00] VITALS: BP_SYST 122; PULSE 63; RESP 17; TEMP 97.4; O2SAT 94
[2023-07-31] MEDS: ATORVASTATIN 20 MG TABLET PO SCH (09:54)
[2023-07-31] MEDS: GABAPENTIN 300 MG CAPSULE PO SCH (09:54)
[2023-07-31] MEDS: DICLOFENAC SODIUM 25 MG TABLET.DR PO SCH (09:54)
[2023-07-31] MEDS: PANTOPRAZOLE SODIUM 40 MG TAB PO SCH (09:54)
[2023-07-31] MEDS: SUCRALFATE 1 GM/10 ML UDC GT SCH (09:54)
[2023-07-31] MEDS: APIXABAN 2.5 MG TABLET PO SCH (10:00)
[2023-07-31] MEDS: NYSTATIN/TRIAMCIN 15 GM TOPICAL CREAM TP SCH (10:01)
[2023-07-31 10:45] VITALS: BP_SYST 122; PULSE 63; RESP 14; TEMP 97.4; O2SAT 94
== END 2023-07-31 11:30 | disposition home or self-care (01) | DRG 682 ==
LOC: SED 11:04 → SMU 22:37 → STU 07-28 17:58 → SMU 07-30 17:43
PROVIDERS: ADMIT Specialist; ATTEND Specialist
PROC: 05HY33Z Insertion of Infusion Device into Upper Vein, Percutaneous Approach (ICD-10-PCS; principal; 2023-07-27)
PROC: B54NZZA Ultrasonography of Left Upper Extremity Veins, Guidance (ICD-10-PCS; 2023-07-27)
DX: N17.9 Acute kidney failure, unspecified (principal); E43 Unspecified severe protein-calorie malnutrition; M48.56XA Collapsed vertebra, not elsewhere classified, lumbar region, initial encounter for fracture; E87.20 Acidosis, unspecified; E86.0 Dehydration; E66.9 Obesity, unspecified; I48.91 Unspecified atrial fibrillation; E78.5 Hyperlipidemia, unspecified; T46.0X5A Adverse effect of cardiac-stimulant glycosides and drugs of similar action, initial encounter; G89.29 Other chronic pain; M16.11 Unilateral primary osteoarthritis, right hip; Z79.899 Other long term (current) drug therapy; Z79.01 Long term (current) use of anticoagulants; Y92.89 Other specified places as the place of occurrence of the external cause; Z68.27 Body mass index [BMI] 27.0-27.9, adult
CPT/HCPCS: 36415; 71045; 72170-TC; 73502; 73552; 76376; 80048; 80053; 80162; 81000; 81001; 81015; 83605; 85025; 87040; 87086; 93005; 96365; 96375; 97116-GP; 97530-GP; 99285; C9113; G0378; J0692; J1885; J1956; J2405; J3490; J7060